=== PATIENT | male | born 1940 | race Caucasian/White ===

== ENCOUNTER → 2024-05-10 | Outpatient (CLI) | payer OTHER, SELFPAY | END | disposition home or self-care (01) | LOC: SLDO 15:30 | PROVIDERS: PCP Nurse Practitioner Family; Referring Provider Nurse Practitioner Family; Visit Provider Nurse Practitioner Family | DX: L03.031 Cellulitis of right toe (principal) | CPT/HCPCS: 87070; 87205 ==

== ENCOUNTER → 2024-07-12 | Outpatient (CLI) | payer OTHER, SELFPAY ==
[2024-07-12 15:13] LABS: Collection Type, Urine Clean Catch; Squamous Epithelial Cell,Urine 0 /hpf (0-5)
[2024-07-12 15:58] LABS: Bilirubin,Urine Negative (Negative); Blood,Urine 2+ (Negative); Clarity,Urine Turbid (Clear/Hazy); Color,Urine Lt-Yellow (Lt Yel-Yel); Glucose, Urine Negative (Negative); Ketones,Urine Negative (Negative); Leukocyte Esterase,Urine Positive (Negative); Nitrite,Urine Negative (Negative); Protein,Urine Negative (Neg - Trace); RBC,Urine 15 /hpf (0-3); Specific Gravity,Urine 1.007 (1.001-1.035); Urobilinogen,Urine Negative mg/dL (0.0-1.0); WBC,Urine 726 /hpf (0-5)
[2024-07-12 15:59] LABS: Amphetamine/Methamp Scrn,U Negative (Negative); Barbiturate Screen,Urine Negative (Negative); Benzodiazepines Screen,Urine Negative (Negative); Benzoylecgonine Screen, Ur Negative (Negative); Fentanyl Screen,Urine Negative (Negative); Opiate Screen,Urine Negative (Negative); THC Screen,Urine Negative (Negative)
== END | disposition home or self-care (01) ==
LOC: SLDO 14:57
PROVIDERS: PCP Registered Nurse; Referring Provider Registered Nurse; Visit Provider Registered Nurse
DX: N39.0 Urinary tract infection, site not specified (principal); Z79.891 Long term (current) use of opiate analgesic
CPT/HCPCS: 80307; 81001; 87077; 87086; 87186

== ENCOUNTER 2024-09-20 18:42 | Emergency (ER) | payer OTHER, SELFPAY ==
[2024-09-20 19:03] VITALS: BP 143/73; PULSE 73; RESP 18; TEMP 36.6; O2SAT 95
--- NOTE | 2024-09-20 19:07 | PD.EDCHEST ---
ED Chest Pain RME/HPI General Chief Complaint: Chest Pain Stated Complaint: CHEST PAIN Time Seen by Provider: 09/20/24 18:54 Arrival date/time: 09/20/24 18:42 RME / HPI RME / HPI narrative: Dr. Andrea?s Main ED Evaluation:?84 y/o male with Hx of Myocardial Infarction, Cardiac Arrhythmia, Atrial Fibrillation, Angina, Heart Murmur, Coronary Artery Disease, Hypertension, and COPD BIBA from home presents to ED c/o sudden intermittent substernal chest pain with exertion x approximately 1.5 hours. No radiation or migration. Per EMS, patient was in SVT and as they were about to administer Adenosine, patient converted on his own. Denies any history of SVT or current pain. Patient denies shortness of breath, diaphoresis, N/V or any other associated symptoms. Related Data Home Medications ?Medication ?Instructions ?Recorded ?Confirmed ferrous gluconate 324 mg (38 mg 324 mg PO QDAY 03/22/23 11/01/23 iron) tablet metformin 1,000 mg tablet 1,000 mg PO BID 03/22/23 11/01/23 Held on 03/28/23. Instructions: Resume on 03/31/23. hold metform may resume on 03/31/2023 omeprazole 20 mg capsule,delayed 20 mg PO QDAY 03/22/23 11/01/23 release terazosin 5 mg capsule 2 mg PO HS 03/22/23 11/01/23 tiotropium bromide 2.5 2 puff inhalation QDAY 03/22/23 11/01/23 mcg/actuation mist for inhalation (Spiriva Respimat) aspirin 81 mg tablet,delayed 81 mg PO QDAY 03/23/23 11/01/23 release (Ecotrin Low Strength) hydrocodone 5 mg-acetaminophen 325 1 tab PO BID PRN Pain 03/23/23 11/01/23 mg tablet ascorbic acid (vitamin C) 500 mg 900 mg PO QDAY 11/01/23 11/01/23 tablet atorvastatin 40 mg tablet 40 mg PO QDAY 11/01/23 11/01/23 magnesium 200 mg tablet 400 mg PO QDAY 11/01/23 11/01/23 Allergies Allergy/AdvReac Type Severity Reaction Status Date / Time lisinopril Allergy Verified 10/16/22 12:07 Penicillins Allergy Verified 10/16/22 12:07 prednisone Allergy Verified 10/16/22 12:07 alprazolam (From Xanax) AdvReac Agitated Verified 11/01/23 08:16 lorazepam (From Ativan) AdvReac Agitated Verified 11/01/23 08:16 meloxicam AdvReac Confusion Verified 11/01/23 08:16 Review of Systems Review of Systems Systems Reviewed: All systems reviewed, normal except as documented Past Medical History Past Medical History NEUROLOGIC: Positive Dementia CARDIAC: Positive Cardiac Disorders, Myocardial Infarction, Cardiac Arrhythmia, Atrial Fibrillation, Angina, Heart Murmur, Coronary Artery Disease and Hypertension RESPIRATORY: Positive Chronic Obstructive Pulmonary Disease (COPD) GENITOURINARY: Positive Genitourinary Disorders and Benign Prostatic Hyperplasia MUSCULOSKELETAL: Positive Arthritis ENDOCRINE: Positive Diabetes Mellitus Type 2 OTHER HISTORY: Positive Hospitalization and Falls Family History FAMILY HISTORY: Positive Family Respiratory Disorders, Family Cancer and Family Surgery Surgical History SURGICAL: Positive Coronary Stent, Cardiac Catheterization, Angiogram and Vasectomy ED Exam Narrative Physical exam: GENERAL APPEARANCE: alert and oriented x 4, well-developed, well-nourished, no acute distress VITALS: All vitals were reviewed and the pulse ox is 95% on room air, which is normal according to my interpretation. HEENT: Normocephalic, atraumatic; pupils equal, round, reactive to light; EOMI; mucous membranes pink, moist; oropharynx clear NECK: Supple LUNGS: CTABL; no wheezes, no rales, no rhonchi HEART: Regular rate, regular rhythm; normal S1, S2; no murmurs ABDOMEN: non distended; normal BS; soft, no tenderness, no guarding, no rebound; no masses, no organomegaly, no hernia BACK: no CVA tenderness EXTREMITIES: atraumatic; no edema NEUROLOGIC: awake; alert and oriented x4; cranial nerves II-XII grossly intact; no focal sensory or motor deficits PSYCHIATRIC: appropriate mood and affect SKIN: warm, dry, normal color; no rashes Course Course Course Narrative: CXR is ordered for determining the etiology of chest pain. Quality Measures none Orders Category Date Time Status It Application Support Analyst STAT Care 09/20/24 19:08 Completed Continuous Pulse Oximetry ONCE Care 09/20/24 19:08 Completed EKG (ED ONLY) *Do not use* NOW Care 09/20/24 19:08 Completed Insert IV STAT Care 09/20/24 19:08 Completed EKG (ED Only) Stat Exams 09/20/24 19:08 Draft XR chest 1V portable Stat Exams 09/20/24 19:08 Completed B-Type Natriuretic Peptide Stat Lab 09/20/24 19:31 Completed CBC Stat Lab 09/20/24 19:31 Completed Comprehensive Metabolic Panel Stat Lab 09/20/24 19:31 Completed Lipase Stat Lab 09/20/24 19:31 Completed Magnesium Stat Lab 09/20/24 19:31 Completed Partial Thromboplastin Time Stat Lab 09/20/24 19:31 Completed Prothrombin Time with INR Stat Lab 09/20/24 19:31 Completed Troponin I Stat Lab 09/20/24 19:31 Completed Troponin I Stat Lab 09/20/24 21:35 Completed Vital Signs Vital signs: Vital Signs Temperature 98 F 09/20/24 19:03 Pulse Rate 73 09/20/24 19:03 Respiratory Rate 18 09/20/24 19:03 Blood Pressure 143/73 H 09/20/24 19:03 Pulse Oximetry (%) 95 09/20/24 19:03 Oxygen Delivery Method Room Air 09/20/24 19:03 Chest Pain MDM Narrative MDM Narrative:: Scribe Attestation: Peyton Kramer am scribing for and in the presence of Dr. Andrea. Provider Notation: Although this document has been carefully reviewed, there may still be some phonetic and other typographical errors.? These errors are purely grammatical due to imperfections in the software program and should not be construed in any way to? compromise the substance of the patient's medical care during this visit. 2247: Patient leaving AMA. Patient was informed of the risks versus benefits of leaving and patient signed out AMA. Patient data External records reviewed:: [facility] previous records (Prior ED records from 11/01/23 reviewed. Patient was seen for Abrasion of forehead.) and EMS form Clinical information provided by:: patient and EMS Social determinants that could affect healthcare access:: none Patient has the following chronic illnesses:: Dementia, Myocardial Infarction, Cardiac Arrhythmia, Atrial Fibrillation, Angina, Heart Murmur, Coronary Artery Disease, Hypertension, COPD, Benign Prostatic Hyperplasia, Arthritis, Diabetes Mellitus Type 2 How is presenting disease/condition affected by chronic disease/condition?: exacerbated by Evaluation data The following diagnostics were reviewed and interpreted by me:: lab results, radiology exam(s) and EKG tracing(s) (EKG at 193 shows normal sinus rhythm at 78, normal axis, Q-waves in lead III, no signs of acute ischemia.) Lab and/or radiology exams considered but not ordered:: None. Interpretation Summary: LABS Hematology: RBC 3.45, Hgb 11.1, Hct 33.5%, RDW St. Dev. 49.7. Chemistry: Estimated Creatinine Clear Calc 50.1, eGFR 55, BUN/Creatinine 10. RADIOLOGY Chest X-Ray: Patient: ARIEL DICK. Record#: [id number] Birthdate: 1940 Age/Sex: 84 / M Location: [facility] Attending Dr: Ordering Physician: Collins Andrea MD Date of Service: 09/20/24 Procedure(s): XR chest 1V portable Accession Number(s): [id number] cc: Jelani Mahoney MD; Earl Felipe MD; Collins Andrea MD~ Examination: AP chest single view TECHNIQUE: AP portable upright chest single view Standing time: September 20, 2024 1933 hours INDICATIONS: Such as pain today. FINDINGS: Normal heart size Median sternotomy wires. No pneumonia or pulmonary edema IMPRESSION: No active disease Dictated By: Jelani Mahoney MD Signed By: <Electronically signed by Jelani Mahoney MD in OV> 09/20/242112 Medications / Prescriptions Medications or Prescriptions considered but not ordered:: None. Medication administrations:: See above if any. Consultations Consultation(s) initiated? (list below): No Diagnosis Chest Pain Differential Diagnosis: stable angina, unstable angina pectoris, atypical chest pain, costochondritis and chest pain Most likely diagnosis given after review of the tests above:: See clinical impression below. Admission Indicated Admission indicated?: not indicated Explain why admission is indicated or not indicated:: Patient left AMA Admission Request Was there a request for admission?: No Disposition Plan Disposition Plan: other (specify) (Patient is signing out AMA.) Discharge Plan Plan Patient Disposition: Left Against Medical Advice Discharge Disposition comment: AGAINST MEDICAL ADVICE Patient condition on transfer: Stable Prescriptions/Referrals Prescriptions/Med Rec: No Action terazosin 5 mg capsule 2 mg PO HS Patient Comments: TAKE 1 CAPSULE BY MOUTH EVERY DAY AT BEDTIME FOR 90 DAYS metformin 1,000 mg tablet 1,000 mg PO BID Patient Comments: TAKE 1 TABLET BY MOUTH TWICE A DAY FOR 90 DAYS omeprazole 20 mg capsule,delayed release(DR/EC) 20 mg PO QDAY Patient Comments: TAKE 1 CAPSULE BY MOUTH EVERY DAY 30 MINUTES BEFORE MORNING MEAL FOR 90 DAYS ferrous gluconate 324 mg (38 mg iron) tablet 324 mg PO QDAY Patient Comments: TAKE 1 TABLET BY MOUTH EVERY DAY WITH WATER OR JUICE BETWEEN MEALS Spiriva Respimat 2.5 mcg/actuation mist 2 puff INHALATION QDAY hydrocodone-acetaminophen 5-325 mg tablet 1 tab PO BID PRN (Reason: Pain) aspirin [Ecotrin Low Strength] 81 mg Tablet,Delayed Release (Dr/Ec) 81 mg PO QDAY atorvastatin 40 mg Tablet 40 mg PO QDAY ascorbic acid (vitamin C) [Super C] 500 mg Tablet 900 mg PO QDAY magnesium 200 mg Tablet 400 mg PO QDAY Referrals: Earl Felipe MD [Primary Care Provider] - In 1 week Problem List Clinical Impression: Chest pain Patient/Caregiver Discharge Instructions Discharge Activity: activity as tolerated Education Materials: ED Chest Pain, Uncertain Cause Additional Instructions: Just because you are leaving AGAINST MEDICAL ADVICE does not mean that you cannot come back to this emergency department. Please return to the ER when you are ready to complete your workup and treatment for your medical condition. Otherwise you should follow-up with your primary care doctor and your primary boiler mechanic as soon as possible. Print Language: Chinese
--- NOTE | 2024-09-20 19:08 | EKG_ITS ---
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
[2024-09-20 19:30] VITALS: PULSE 152; PULSE 79; RESP 22; O2SAT 93
[2024-09-20 19:47] LABS: Basophils % (Auto) 1 % (0-2.5); Eosinophils # (Auto) 0.3 Thou/mm3 (0.0-0.5); Eosinophils % (Auto) 5 % (0-10); Hematocrit 33.5 % (41.0-53.0); Hemoglobin 11.1 g/dL (13.5-16.0); Immature Granulocytes % (Auto) 0 % (0-0); Immature Granulocytes Auto 0.01 Thou/mm3 (0.00-0.00); Lymphocytes % (Auto) 30 % (10-50); Mean Corpuscular HGB Conc 33.1 g/dl (31.0-37.0); Mean Corpuscular Hemoglobin 32.2 pg (25.0-35.0); Mean Corpuscular Volume 97 fL (80-100); Monocytes # (Auto) 0.7 Thou/mm3 (0.0-0.8); Monocytes % (Auto) 10 % (0-12); Neutrophils # (Auto) 3.6 Thou/mm3 (1.8-7.7); Neutrophils % (Auto) 54 % (37-80); Nucleated Red Blood Cell % 0 /100 WBC (0); Platelet Count 194 Thou/mm3 (140-440); RDW Standard Deviation 49.7 fL (35.1-43.9); Red Blood Count 3.45 Miln/mm3 (4.50-5.90); White Blood Count 6.6 Thou/mm3 (3.8-10.6)
[2024-09-20 19:51] VITALS: BMI 27.6
[2024-09-20 20:04] LABS: B-Type Natriuretic Peptide 42 pg/mL (0-100)
[2024-09-20 20:07] LABS: Alanine Aminotransferase 11 U/L (10-49); Albumin, Serum 4.2 gm/dL (3.4-4.8); Albumin/Globulin Ratio 1.7 (1.2-2.2); Alkaline Phosphatase 89 U/L (46-116); Anion Gap 7 (7-16); Aspartate Amino Transferase 14 U/L (0-34); BUN/Creatinine Ratio 10 Ratio (12-20); Bilirubin,Total 0.6 mg/dL (0.3-1.2); Blood Urea Nitrogen 13 mg/dL (9-23); Calcium 9.1 mg/dL (8.3-10.6); Calcium (Corrected) 9.1 mg/dL (8.5-10.1); Carbon Dioxide 24.7 mMol/L (20.0-31.0); Chloride 106 mMol/L (98-107); Creatinine (Component) 1.3 mg/dL (0.6-1.3); Estimated Creatinine Clearance 50.1 mL/min (>60); Globulin 2.5 gm/dL (2.3-3.5); Glucose 90 mg/dL (74-106); Lipase 33 U/L (12-53); Magnesium 2.1 mg/dL (1.6-2.6); Osmolality,Calculated 275 (275-295); Potassium 4.2 mMol/L (3.4-5.1); Sodium 138 mMol/L (136-145); Total Protein 6.7 gm/dL (5.7-8.2); Troponin I < 0.020 ng/mL (0.0-0.045); eGFR 55 See Note
[2024-09-20 21:16] LABS: Partial Thromboplastin Time 22.8 Seconds (22.0-36.0); Prothrombin Time 10.9 Seconds (9.0-12.2)
[2024-09-20 21:29] VITALS: BP 151/74; PULSE 70; RESP 18; TEMP 36.8; O2SAT 95
[2024-09-20 22:40] LABS: Troponin I 0.029 ng/mL (0.0-0.045)
--- NOTE | 2024-09-20 22:54 | PC.NURSE ---
Patient's family member was upset and tired of waiting for results. She asked multiple times what they were waiting for. I explained several times as I had went in the patients room to check on them, do rounding, and update vitals, that they were waiting for lab work to come back for the patient. She was unsatisfied and continuously repeated, so we can leave multiple times. I explained to her that I wasn't the nurse and I was going to get the nurse to come and talk to her, she stated again, so we can leave . I let the RN manuela know and she went in to talk to the patient.
--- NOTE | 2024-09-20 22:55 | PC.NURSE ---
Pt and family member want to leave. Encouraged pt to stay, but refused. Explained the risks and consequences of leaving the hospital. Aware if symptoms worsen, may lead to ; pt and family member verbalized understanding. Dr. Andrea made aware pt is leaving AMA. AMA form signed by pt.
== END 2024-09-20 22:55 | disposition left against medical advice (07) ==
PROVIDERS: Emergency Provider Emergency Medicine; PCP Family Medicine
DX: R07.9 Chest pain, unspecified (principal); I44.0 Atrioventricular block, first degree; I25.2 Old myocardial infarction; I48.91 Unspecified atrial fibrillation; I25.10 Atherosclerotic heart disease of native coronary artery without angina pectoris; I10 Essential (primary) hypertension; J44.9 Chronic obstructive pulmonary disease, unspecified; Z53.29 Procedure and treatment not carried out because of patient's decision for other reasons
CPT/HCPCS: 36415; 71045; 80053; 83690; 83735; 83880; 84484; 85025; 85610; 85730; 93005; 99283

== ENCOUNTER → 2024-10-15 | Outpatient (CLI) | payer OTHER, SELFPAY ==
[2024-10-15 14:32] LABS: Collection Type, Urine Clean Catch; Squamous Epithelial Cell,Urine 0 /hpf (0-5)
[2024-10-15 16:19] LABS: Bilirubin,Urine Negative (Negative); Blood,Urine Negative (Negative); Clarity,Urine Clear (Clear/Hazy); Color,Urine Lt-Yellow (Lt Yel-Yel); Glucose, Urine Negative (Negative); Hyaline Casts,Urine < 1 /hpf (0-1); Ketones,Urine Negative (Negative); Leukocyte Esterase,Urine Negative (Negative); Nitrite,Urine Negative (Negative); PH,Urine 5.5 (5.0-7.0); Protein,Urine Negative (Neg - Trace); RBC,Urine < 1 /hpf (0-3); Specific Gravity,Urine 1.023 (1.001-1.035); Urobilinogen,Urine Negative mg/dL (0.0-1.0); WBC,Urine < 1 /hpf (0-5)
== END | disposition home or self-care (01) ==
LOC: SLDO 14:09
PROVIDERS: Referring Provider Nurse Practitioner Family; Visit Provider Nurse Practitioner Family
DX: N39.0 Urinary tract infection, site not specified (principal)
CPT/HCPCS: 81001; 87086

== ENCOUNTER → 2024-11-22 | Outpatient (CLI) | payer OTHER, SELFPAY ==
[2024-11-22 12:18] LABS: Basophils # (Auto) 0.0 Thou/mm3 (0.0-0.2); Basophils % (Auto) 0 % (0-2.5); Eosinophils # (Auto) 0.3 Thou/mm3 (0.0-0.5); Eosinophils % (Auto) 4 % (0-10); Hematocrit 33.2 % (41.0-53.0); Hemoglobin 11.1 g/dL (13.5-16.0); Immature Granulocytes Auto 0.02 Thou/mm3 (0.00-0.00); Lymphocytes # (Auto) 1.7 Thou/mm3 (1.0-4.8); Lymphocytes % (Auto) 24 % (10-50); Mean Corpuscular HGB Conc 33.4 g/dl (31.0-37.0); Mean Corpuscular Hemoglobin 32.0 pg (25.0-35.0); Mean Corpuscular Volume 96 fL (80-100); Monocytes # (Auto) 0.6 Thou/mm3 (0.0-0.8); Monocytes % (Auto) 9 % (0-12); Neutrophils # (Auto) 4.4 Thou/mm3 (1.8-7.7); Neutrophils % (Auto) 62 % (37-80); Nucleated Red Blood Cell # 0.00 Thou/mm3 (0.00-0.00); Nucleated Red Blood Cell % 0 /100 WBC (0); Platelet Count 228 Thou/mm3 (140-440); RDW Standard Deviation 47.4 fL (35.1-43.9); Red Blood Count 3.47 Miln/mm3 (4.50-5.90); White Blood Count 7.0 Thou/mm3 (3.8-10.6)
[2024-11-22 12:24] LABS: Alanine Aminotransferase 11 U/L (10-49); Albumin, Serum 4.3 gm/dL (3.4-4.8); Albumin/Globulin Ratio 1.8 (1.2-2.2); Alkaline Phosphatase 99 U/L (46-116); Anion Gap 7 (7-16); Aspartate Amino Transferase 14 U/L (0-34); BUN/Creatinine Ratio 11 Ratio (12-20); Bilirubin,Total 0.5 mg/dL (0.3-1.2); Blood Urea Nitrogen 14 mg/dL (9-23); Calcium 9.4 mg/dL (8.3-10.6); Calcium (Corrected) 9.4 mg/dL (8.5-10.1); Carbon Dioxide 27.2 mMol/L (20.0-31.0); Chloride 109 mMol/L (98-107); Creatinine (Component) 1.3 mg/dL (0.6-1.3); Globulin 2.4 gm/dL (2.3-3.5); Glucose 94 mg/dL (74-106); Osmolality,Calculated 285 (275-295); Potassium 4.9 mMol/L (3.4-5.1); Sodium 143 mMol/L (136-145); Total Protein 6.7 gm/dL (5.7-8.2); eGFR 55 See Note
[2024-11-22 13:51] LABS: B-Type Natriuretic Peptide 47 pg/mL (0-100)
== END | disposition home or self-care (01) ==
PROVIDERS: PCP Registered Nurse; Referring Provider Registered Nurse; Visit Provider Registered Nurse
DX: R22.43 Localized swelling, mass and lump, lower limb, bilateral (principal); R53.82 Chronic fatigue, unspecified
CPT/HCPCS: 36415; 80053; 83880; 85025

== ENCOUNTER 2024-12-16 08:58 | Observation (INO) | payer OTHER, SELFPAY ==
[2024-12-16] VITALS (7 sets, daily range): BP systolic 136–177; BP diastolic 74–95; PULSE 72–78; RESP 14–96; TEMP 36.4–36.9; O2SAT 93–100; BMI 29.5
--- NOTE | 2024-12-16 | XR_ITS ---
Examinations: MRI Brain without intravenous contrast. MRA brain without intravenous contrast. MRA carotids without intravenous contrast 3-D vascular reconstructions Date and time of exam: December 16, 2024 1832 hours INDICATIONS: Stroke alert today, onset dizziness focal neurologic deficit Technique: Multiple axial and sagittal images of the brain have been obtained MRA brain carotid images without contrast obtained, including 3-D postprocessing, vascular maximum intensity projection images Findings: Sellaturcica is not enlarged. The optic chiasm and infundibular stalk are not remarkable. Prepontine and interpeduncular cisterns are not enlarged. No localized enlargement of the medulla or jaron. Fourth ventricle and cerebellar tonsils normal in position. Subacute hemorrhage is not seen. Fourth ventricle is midline. Mass in the cerebellopontine angle region is not evident. 7th and 8th nerve complexes exhibits symmetry. Globes are symmetrical with no retro-orbital mass. Increased white matter signal moderate Diffusion-weighted images demonstrate no focus of restricted diffusion Mass-effect upon the ventricular system is not identified. MRA carotid images no significant carotid stenoses. MRA brain images no cerebral assess arterial occlusions Impression: Negative for acute hemorrhage mass effect or midline shift No acute infarct Moderate chronic microvascular white matter change Significant bilateral mastoiditis No cerebral large vessel arterial occlusions
--- NOTE | 2024-12-16 09:06 | PD.EDDIZZY ---
ED Dizzyness RME/HPI General Chief Complaint: Altered Mental Status Stated Complaint: DIZZINESS Time Seen by Provider: 12/16/24 09:02 Arrival date/time: 12/16/24 08:58 Limitations: no limitations RME / HPI RME / HPI Narrative: 84 year old male with history of CAD s/p stents, s/p CABG, COPD, hypertension, diabetes, BPH presents to the ED BIBA from home for evaluation of dizziness beginning at 08:00 AM today while making tea. Described as room spinning sensation rating as severe. Accompanied by double vision lasting only ~1 minute. Patient reports going to bed at 8:00 PM last night and waking at ~ 7:00 AM today at his usual state of health. Denies any change in speech or gait. Denies recent illness, fevers, chills, chest pain, cough, shortness of breath, abdominal pain, vomiting, change in bowel habits Reportedly has experienced dizziness in the past but not to this severity. Related Data Home Medications ?Medication ?Instructions ?Recorded ?Confirmed ferrous gluconate 324 mg (38 mg 324 mg PO QDAY 03/22/23 11/01/23 iron) tablet metformin 1,000 mg tablet 1,000 mg PO BID 03/22/23 11/01/23 Held on 03/28/23. Instructions: Resume on 03/31/23. hold metform may resume on 03/31/2023 omeprazole 20 mg capsule,delayed 20 mg PO QDAY 03/22/23 11/01/23 release terazosin 5 mg capsule 2 mg PO HS 03/22/23 11/01/23 tiotropium bromide 2.5 2 puff inhalation QDAY 03/22/23 11/01/23 mcg/actuation mist for inhalation (Spiriva Respimat) aspirin 81 mg tablet,delayed 81 mg PO QDAY 03/23/23 11/01/23 release (Ecotrin Low Strength) hydrocodone 5 mg-acetaminophen 325 1 tab PO BID PRN Pain 03/23/23 11/01/23 mg tablet ascorbic acid (vitamin C) 500 mg 900 mg PO QDAY 11/01/23 11/01/23 tablet atorvastatin 40 mg tablet 40 mg PO QDAY 11/01/23 11/01/23 magnesium 200 mg tablet 400 mg PO QDAY 11/01/23 11/01/23 Allergies Allergy/AdvReac Type Severity Reaction Status Date / Time lisinopril Allergy Verified 10/16/22 12:07 Penicillins Allergy Verified 10/16/22 12:07 prednisone Allergy Verified 10/16/22 12:07 alprazolam (From Xanax) AdvReac Agitated Verified 11/01/23 08:16 lorazepam (From Ativan) AdvReac Agitated Verified 11/01/23 08:16 meloxicam AdvReac Confusion Verified 11/01/23 08:16 Review of Systems Review of Systems Systems Reviewed: All systems reviewed, normal except as documented Past Medical History Past Medical History NEUROLOGIC: Positive Dementia CARDIAC: Positive Cardiac Disorders, Myocardial Infarction, Cardiac Arrhythmia, Atrial Fibrillation, Angina, Heart Murmur, Coronary Artery Disease and Hypertension RESPIRATORY: Positive Chronic Obstructive Pulmonary Disease (COPD) GENITOURINARY: Positive Genitourinary Disorders and Benign Prostatic Hyperplasia MUSCULOSKELETAL: Positive Musculoskeletal Disorders and Arthritis ENDOCRINE: Positive Diabetes Mellitus Type 2 OTHER HISTORY: Positive Hospitalization and Falls Family History FAMILY HISTORY: Positive Family Respiratory Disorders, Family Cancer and Family Surgery Surgical History SURGICAL: Positive Coronary Stent, Cardiac Catheterization, Angiogram and Vasectomy Social History SMOKING STATUS: Former smoker SECOND HAND EXPOSURE: No SUBSTANCE USE: does not use ED Exam General Limitations: Present no limitations General appearance: Present alert and in no apparent distress Head Head exam: Present atraumatic, normocephalic and normal inspection Eye Eye exam: Present normal appearance, PERRL and EOMI ENT ENT exam: Present normal exam, normal oropharynx and mucous membranes moist Neck Neck exam: Present normal inspection, full ROM and trachea midline Chest Chest inspection: Present normal inspection and symmetric chest wall rise Respiratory Respiratory exam: Present normal lung sounds bilaterally Cardiovascular Cardiovascular exam: Present regular rate, normal rhythm and normal heart sounds Abdominal Exam Abdominal exam: Present soft and normal bowel sounds Extremities Exam Extremities exam: Present normal inspection and full ROM Back Exam Back exam: Present normal inspection and full ROM Neurological Exam Neurological exam: Present alert, oriented X3, CN II-XII intact and other (No focal findings, bradykinetic, and slow to respond which may be baseline for the patient); Absent motor sensory deficit Psychiatric Psychiatric exam: Present normal affect and normal mood Skin Skin exam: Present warm, dry, intact and normal color Course Course Course Narrative: 0908: Patient evaluated in ED room 5 0911: Stroke alert activated Quality Measures Suspected type of Stroke: Non Acute Last known well (date): 12/15/24 Last known well (time): 20:00 Tenecteplase given: Reason(s) TPA not given: Outside the time window not given stroke Orders Category Date Time Status Bedside Blood Glucose NOW Care 12/16/24 09:11 Active Tin Can Laborer NOW Care 12/16/24 09:11 Active Continuous Pulse Oximetry NOW Care 12/16/24 09:11 Completed EKG (ED ONLY) *Do not use* NOW Care 12/16/24 09:04 Completed Insert IV NOW Care 12/16/24 09:11 Active NIH Stroke Scale now Care 12/16/24 09:11 Active NPO NOW Care 12/16/24 09:11 Active Neuro Check Q15MIN Care 12/16/24 09:11 Active Nurse Swallow Screen x1 Care 12/16/24 09:11 Active Consult to Neurology / Tele-Neurology Routine Cons 12/16/24 09:[address] angio stroke protocol Stat Exams 12/16/24 09:[address] stroke protocol Stat Exams 12/16/24 09:11 Completed EKG (ED Only) Stat Exams 12/16/24 09:04 Ordered Alcohol, Blood Medical Stat Lab 12/16/24 09:25 Completed B-Type Natriuretic Peptide Stat Lab 12/16/24 09:25 Completed CBC Stat Lab 12/16/24 09:25 Completed Comprehensive Metabolic Panel Stat Lab 12/16/24 09:25 Completed Drug Screen,Urine Stat Lab 12/16/24 10:03 Completed Magnesium Stat Lab 12/16/24 09:25 Completed Partial Thromboplastin Time Stat Lab 12/16/24 09:25 Completed Prothrombin Time with INR Stat Lab 12/16/24 09:25 Completed Troponin I Stat Lab 12/16/24 09:25 Completed Urinalysis Stat Lab 12/16/24 10:03 Received Urine Culture Stat Lab 12/16/24 10:03 Received Sodium Chloride 0.9% 1000 ml [Ns] 1,000 ml Med 12/16/24 09:15 Active IV Q10H Oxygen Delivery NOW RT 12/16/24 09:11 Active Vital Signs Vital signs: Vital Signs Temperature 98.1 F 12/16/24 09:49 Pulse Rate 78 12/16/24 09:49 Respiratory Rate 17 12/16/24 09:49 Blood Pressure 151/85 H 12/16/24 09:49 Pulse Oximetry (%) 100 12/16/24 09:49 Oxygen Delivery Method Room Air 12/16/24 09:49 Pulse ox is 100% on room air which is adequate. Dizziness MDM Narrative MDM Narrative:: Milagro Kramer am scribing for and in the presence of Dr. Cao. Patient data External records reviewed:: [facility] previous records (I reviewed ED visit on 09/20/2024 ) and EMS form Clinical information provided by:: patient and EMS Social determinants that could affect healthcare access:: none Patient has the following chronic illnesses:: CAD s/p stents, s/p CABG, COPD, hypertension, diabetes, BPH How is presenting disease/condition affected by chronic disease/condition?: exacerbated by Evaluation data The following diagnostics were reviewed and interpreted by me:: lab results, radiology exam(s) and EKG tracing(s) (12/16/2024 @ 09:08 AM. Sinus rhythm with first degree block, rate 77, no acute ischemic changes, no STEMI. ) Lab and/or radiology exams considered but not ordered:: None Interpretation Summary: Ordering Physician: Yosef Cao MD Date of Service: 12/16/24 Procedure(s): CT stroke protocol Accession Number(s): [id number] cc: Yosef Cao MD; Jelani Mahoney MD~ Examination: CT brain head without contrast. 2-D sagittal coronal reconstructions Date and time of exam:December 16, 2024 0917 hours INDICATIONS: Stroke alert, onset focal neurologic deficit today including dizziness blurred vision CTDI: vol (mGy):50.9 DLP: (mGycm):1007 Technique: Multiple CT axial sections of the brain have been obtained, 5 mm slice thickness. Contrast has not been administered. 2-D sagittal, coronal reconstructions have been obtained Low dose protocols were performed. One or more of the following dose reduction techniques were used; automated exposure control, adjustment of the mA and/or KV according to patient size, use of iterative reconstruction technique. Findings: No significant ventricular enlargement. Intra-axial or extra-axial hemorrhage density is not seen. No mass effect or midline shift Basal cisterns are not remarkable. Fourth ventricle is midline. Cranial vault intact. Impression: Negative for acute hemorrhage, mass effect or midline shift Dictated By: Jelani Mahoney MD Signed By: <Electronically signed by Jelani Mahoney MD in OV> 12/16/24 0928 Ordering Physician: Yosef Cao MD Date of Service: 12/16/24 Procedure(s): CT angio stroke protocol Accession Number(s): [id number] cc: Yosef Cao MD; Jelani Mahoney MD~ Examination: CTA carotids with intravenous contrast CTA brain, head with intravenous contrast. 2-D sagittal, coronal reconstructions. 3-D reconstructions. Exam date and time: December 16, 2024 0936 hours INDICATIONS: Stroke alert this morning, onset focal neurologic deficit, blurred vision dizziness vertigo CTDI: vol (mGy) 45.6 DLP: (mGycm) : 520 Technique: Multiple CTA axial brain, head carotid images post intravenous contrast injection 75 cc, Isovue-370. 2-D sagittal, coronal reconstructions. 3-D reconstructions, 3-D post processing including vascular maximum intensity projection images. Low dose protocols were performed. One or more of the following dose reduction techniques were used; automated exposure control, adjustment of the mA and/or KV according to patient size, use of iterative reconstruction technique. Findings: 10-30% stenosis right carotid bifurcation origin right internal carotid artery 30-50% stenosis left carotid bifurcation origin left internal carotid artery Codominant vertebral arteries with no critical stenoses No cerebral large vessel arterial occlusions thrombus dissection or cerebral aneurysm IMPRESSION: 10-30% stenosis right carotid bifurcation origin right internal carotid artery 30-50% stenosis left carotid bifurcation origin left internal carotid artery. No cerebral large vessel arterial occlusions Dictated By: Jelani Mahoney MD Signed By: <Electronically signed by Jelani Mahoney MD in OV> 12/16/24 1015 Medications / Prescriptions Medications or Prescriptions considered but not ordered:: None Medication administrations:: Medication Administration History Sodium Chloride (Ns) 1,000 mls @ 100 mls/hr IV Q10H MARCELINA Stop: 01/15/25 09:14 Last Admin: 12/16/24 10:07 Dose: 100 mls/hr Documented By: TU See above Consultations Consultation(s) initiated? (list below): Yes Consultation #1 (Physician, Specialty, Details): I spoke with teleneurologist Dr. Lawton, states patient is not a TNK candidate at this time. LKW > 4.5 hours. Advised starting the patient on Plavix, ASA, and admission for further stroke work-up. Time: 10:28 Consultation #2 (Physician, Specialty, Details): I spoke with resident working with Dr. Auguste. Discussed patients PMHx, HPI, ED course, exam findings, labs, and radiology results. The hospitalist agree to accept the patient for admission. Time: 10:38 Diagnosis Dizziness Differential Diagnosis: benign paroxysmal positional vertigo, cerebrovascular accident and transient cerebral ischemia Most likely diagnosis given after review of the tests above:: Dizziness Acute CVA Admission Indicated Admission indicated?: indicated Admission Request Was there a request for admission?: Yes Admission Attestation Admission request attestation: Discussed case with [] from Hospitalist service regarding admission. Discussed patients ED course, exam findings, labs, and radiology results. The Hospitalist [agrees,declines] to accept the patient for admission. Disposition Plan Disposition Plan: Admit Critical Care Time Critical Care Time Critical Care Time: Yes Total Critical Care Time (min.): 45 Attestation: The high probability of sudden, clinically significant deterioration in the patient's condition required the highest level of my preparedness to intervene urgently. The services I provided to this patient were to treat and/or prevent clinically significant deterioration. Services included the following: chart data review, reviewing nursing notes and/or old charts, documentation time, education consultant collaboration regarding findings and treatment options, medication orders and management, direct patient care, vital sign assessments and ordering, interpreting and reviewing diagnostic studies and lab tests. Aggregate critical care time includes only time during which I was engaged in work directly related to the patient's care, as described above, whether at bedside or elsewhere in the Emergency Department. It did not include time spent performing other reported procedures or the services of residents, students, nurses or physician assistants. Discharge Plan Plan Patient Disposition: Admit Acute Care w/in Hospital Prescriptions/Referrals Prescriptions/Med Rec: No Action terazosin 5 mg capsule 2 mg PO HS Patient Comments: TAKE 1 CAPSULE BY MOUTH EVERY DAY AT BEDTIME FOR 90 DAYS metformin 1,000 mg tablet 1,000 mg PO BID Patient Comments: TAKE 1 TABLET BY MOUTH TWICE A DAY FOR 90 DAYS omeprazole 20 mg capsule,delayed release(DR/EC) 20 mg PO QDAY Patient Comments: TAKE 1 CAPSULE BY MOUTH EVERY DAY 30 MINUTES BEFORE MORNING MEAL FOR 90 DAYS ferrous gluconate 324 mg (38 mg iron) tablet 324 mg PO QDAY Patient Comments: TAKE 1 TABLET BY MOUTH EVERY DAY WITH WATER OR JUICE BETWEEN MEALS Spiriva Respimat 2.5 mcg/actuation mist 2 puff INHALATION QDAY hydrocodone-acetaminophen 5-325 mg tablet 1 tab PO BID PRN (Reason: Pain) aspirin [Ecotrin Low Strength] 81 mg Tablet,Delayed Release (Dr/Ec) 81 mg PO QDAY atorvastatin 40 mg Tablet 40 mg PO QDAY ascorbic acid (vitamin C) [Super C] 500 mg Tablet 900 mg PO QDAY magnesium 200 mg Tablet 400 mg PO QDAY Referrals: Earl Felipe MD [Primary Care Provider] - In 1 week Problem List Clinical Impression: Dizziness, Acute cerebrovascular accident (CVA) Patient/Caregiver Discharge Instructions Print Language: Yoruba Stand Alone Forms: [facility]dalene Award Info., Patient Portal Info Letter
--- NOTE | 2024-12-16 09:11 | XR_ITS ---
Examination: CTA carotids with intravenous contrast CTA brain, head with intravenous contrast. 2-D sagittal, coronal reconstructions. 3-D reconstructions. Exam date and time: December 16, 2024 0936 hours INDICATIONS: Stroke alert this morning, onset focal neurologic deficit, blurred vision dizziness vertigo CTDI: vol (mGy) 45.6 DLP: (mGycm) : 520 Technique: Multiple CTA axial brain, head carotid images post intravenous contrast injection 75 cc, Isovue-370. 2-D sagittal, coronal reconstructions. 3-D reconstructions, 3-D post processing including vascular maximum intensity projection images. Low dose protocols were performed. One or more of the following dose reduction techniques were used; automated exposure control, adjustment of the mA and/or KV according to patient size, use of iterative reconstruction technique. Findings: 10-30% stenosis right carotid bifurcation origin right internal carotid artery 30-50% stenosis left carotid bifurcation origin left internal carotid artery Codominant vertebral arteries with no critical stenoses No cerebral large vessel arterial occlusions thrombus dissection or cerebral aneurysm IMPRESSION: 10-30% stenosis right carotid bifurcation origin right internal carotid artery 30-50% stenosis left carotid bifurcation origin left internal carotid artery. No cerebral large vessel arterial occlusions
--- NOTE | 2024-12-16 09:11 | XR_ITS ---
Examination: CT brain head without contrast. 2-D sagittal coronal reconstructions Date and time of exam:December 16, 2024 0917 hours INDICATIONS: Stroke alert, onset focal neurologic deficit today including dizziness blurred vision CTDI: vol (mGy):50.9 DLP: (mGycm):1007 Technique: Multiple CT axial sections of the brain have been obtained, 5 mm slice thickness. Contrast has not been administered. 2-D sagittal, coronal reconstructions have been obtained Low dose protocols were performed. One or more of the following dose reduction techniques were used; automated exposure control, adjustment of the mA and/or KV according to patient size, use of iterative reconstruction technique. Findings: No significant ventricular enlargement. Intra-axial or extra-axial hemorrhage density is not seen. No mass effect or midline shift Basal cisterns are not remarkable. Fourth ventricle is midline. Cranial vault intact. Impression: Negative for acute hemorrhage, mass effect or midline shift
[2024-12-16 09:37] LABS: Basophils # (Auto) 0.1 Thou/mm3 (0.0-0.2); Basophils % (Auto) 1 % (0-2.5); Eosinophils # (Auto) 0.3 Thou/mm3 (0.0-0.5); Eosinophils % (Auto) 4 % (0-10); Hematocrit 35.1 % (41.0-53.0); Hemoglobin 11.5 g/dL (13.5-16.0); Immature Granulocytes Auto 0.02 Thou/mm3 (0.00-0.00); Lymphocytes # (Auto) 1.6 Thou/mm3 (1.0-4.8); Lymphocytes % (Auto) 20 % (10-50); Mean Corpuscular HGB Conc 32.8 g/dl (31.0-37.0); Mean Corpuscular Hemoglobin 31.9 pg (25.0-35.0); Mean Corpuscular Volume 97 fL (80-100); Monocytes # (Auto) 0.7 Thou/mm3 (0.0-0.8); Monocytes % (Auto) 8 % (0-12); Neutrophils # (Auto) 5.3 Thou/mm3 (1.8-7.7); Neutrophils % (Auto) 67 % (37-80); Nucleated Red Blood Cell # 0.00 Thou/mm3 (0.00-0.00); Nucleated Red Blood Cell % 0 /100 WBC (0); Platelet Count 223 Thou/mm3 (140-440); RDW Standard Deviation 48.6 fL (35.1-43.9); Red Blood Count 3.61 Miln/mm3 (4.50-5.90); White Blood Count 8.0 Thou/mm3 (3.8-10.6)
[2024-12-16 09:51] LABS: INR 1.0 (0.9-1.3); Partial Thromboplastin Time 25.6 Seconds (22.0-36.0); Prothrombin Time 10.8 Seconds (9.0-12.2)
[2024-12-16] MEDS: SODIUM CHLORIDE 0.9% 1000 ML 1,000 ML 100 ML IV ×2 (10:07→20:25)
[2024-12-16 10:08] LABS: Alanine Aminotransferase 10 U/L (10-49); Albumin, Serum 4.0 gm/dL (3.4-4.8); Albumin/Globulin Ratio 1.7 (1.2-2.2); Alcohol, Blood Medical < 10.0 mg/dL (0-10.0); Alkaline Phosphatase 95 U/L (46-116); Anion Gap 5 (7-16); Aspartate Amino Transferase 16 U/L (0-34); BUN/Creatinine Ratio 9 Ratio (12-20); Bilirubin,Total 0.6 mg/dL (0.3-1.2); Blood Urea Nitrogen 13 mg/dL (9-23); Calcium 9.0 mg/dL (8.3-10.6); Calcium (Corrected) 9.0 mg/dL (8.5-10.1); Carbon Dioxide 26.9 mMol/L (20.0-31.0); Chloride 110 mMol/L (98-107); Creatinine (Component) 1.4 mg/dL (0.6-1.3); Estimated Creatinine Clearance 51.5 mL/min (>60); Globulin 2.4 gm/dL (2.3-3.5); Glucose 95 mg/dL (74-106); Magnesium 1.5 mg/dL (1.6-2.6); Osmolality,Calculated 283 (275-295); Potassium 4.7 mMol/L (3.4-5.1); Sodium 142 mMol/L (136-145); Total Protein 6.4 gm/dL (5.7-8.2); Troponin I < 0.020 ng/mL (0.0-0.045); eGFR 50 See Note
[2024-12-16 10:12] LABS: Collection Type, Urine Catheter; Squamous Epithelial Cell,Urine 0 /hpf (0-5)
[2024-12-16 10:16] LABS: B-Type Natriuretic Peptide 48 pg/mL (0-100)
[2024-12-16 10:22] LABS: Bilirubin,Urine Negative (Negative); Blood,Urine Negative (Negative); Clarity,Urine Clear (Clear/Hazy); Color,Urine Lt-Yellow (Lt Yel-Yel); Glucose, Urine Negative (Negative); Ketones,Urine Negative (Negative); Leukocyte Esterase,Urine Negative (Negative); Nitrite,Urine Negative (Negative); PH,Urine 7.0 (5.0-7.0); Protein,Urine Negative (Neg - Trace); RBC,Urine 1 /hpf (0-3); Specific Gravity,Urine 1.026 (1.001-1.035); Urobilinogen,Urine Negative mg/dL (0.0-1.0); WBC,Urine 1 /hpf (0-5)
[2024-12-16 10:29] LABS: Amphetamine/Methamp Scrn,U Negative (Negative); Barbiturate Screen,Urine Negative (Negative); Benzodiazepines Screen,Urine Negative (Negative); Benzoylecgonine Screen, Ur Negative (Negative); Fentanyl Screen,Urine Negative (Negative); Opiate Screen,Urine Negative (Negative); THC Screen,Urine Negative (Negative)
--- NOTE | 2024-12-16 10:29 | ESCONSULT_ITS ---
Tele Neuro Consultation Consultation Date 12/16/24 Most Recent Vital Signs Last Vital Signs Temp 98.1 F 12/16/24 09:49 Pulse 78 12/16/24 09:49 Resp 17 12/16/24 09:49 BP 151/85 H 12/16/24 09:49 Pulse Ox 100 12/16/24 09:49 O2 Del Method Room Air 12/16/24 09:49 Laboratory-Coagulation Panel PT 10.8 Seconds (9.0-12.2) 12/16/24 09:25 INR 1.0 (0.9-1.3) 12/16/24 09:25 APTT 25.6 Seconds (22.0-36.0) 12/16/24 09:25 Consultation Narrative [facility] Tele[facility]urology Consult Services Patient Name:???Yajaira Donis Date of :???1940 Identification Number:??? Date of Service:???12/16/2024 09:13:31 Diagnosis:?R42 - Dizziness/ Vertigo/ Giddiness Impression: ?84yo man w/PMH of DM, CAD s/p CABG p/w dizziness on 12/16/24. He states he had spinning dizziness this morning so EMS was called for him. He also felt shaky and sweaty. He otherwise denies complaints or prior episodes. He states he last felt normal at 20:00 on 12/16/24. NIHSS 1 for left arm dysmetria. CT Head has no acute findings per radiology, chronic infarct noted. Pt is not a candidate for thrombolytics due to being out of the 4.5 hour window. CTA Head/Neck shows no acute large vessel occlusion. Presentation is concerning for acute small vessel ischemic stroke based on history and exam, MRI Brain advised. Other possibilities include peripheral vertigo, infectious or metabolic encephalopathy. Plan listed below was recommended to the ED physician by phone. Our recommendations are outlined below. Recommendations: ? Stroke/Telemetry Floor ? Neuro Checks (Q4) ? Bedside Swallow Eval ? DVT Prophylaxis ? IV Fluids, Normal Saline ? Head of Bed 30 Degrees ? Euglycemia and Avoid Hyperthermia (PRN Acetaminophen) ? Bolus with Clopidogrel 300 mg bolus x1 and initiate dual antiplatelet therapy with Aspirin 81 mg daily and Clopidogrel 75 mg daily ? Antihypertensives PRN if Blood pressure is greater than 220/120 or there is a concern for End organ damage/contraindications for permissive HTN. If blood pressure is greater than 220/120 give labetalol PO or IV or Vasotec IV with a goal of 15% reduction in BP during the first 24 hours. ?Routine MRI Brain without contrast to assess for stroke ?TTE (if not recently done) ?Lipid Profile, A1C ?PT/OT, Speech/Swallow evaluation Sign Out: ? Discussed with Emergency Department Provider Advanced Imaging: CTA Head and Neck Completed. LVO:No Patient is not a candidate for JAKOB Metrics: Last Known Well: 12/15/2024 20:00:00 Dispatch Time: 12/16/2024 09:13:31 Arrival Time: 12/16/2024 08:58:00 Initial Response Time: 12/16/2024 09:17:00Symptoms: dizziness. Initial patient interaction: 12/16/2024 09:20:37 NIHSS Assessment Completed: 12/16/2024 09:31:09Patient is not a candidate for Thrombolytic. Thrombolytic Medical Decision: 12/16/2024 09:31:11Patient was not deemed candidate for Thrombolytic because of following reasons: LKW outside 4.[address] Head: I personally reviewed all the CT images that were available to me and it showed: no acute findings Primary Provider Notified of Diagnostic Impression and Management Plan on: 12/16/2024 10:28:07 History of Present Illness:Patient is a 84 year old Male. Patient was brought by EMS for symptoms of dizziness. 84yo man w/PMH of DM, CAD s/p CABG p/w dizziness on 12/16/24. He states he had spinning dizziness this morning so EMS was called for him. He also felt shaky and sweaty. He otherwise denies complaints or prior episodes. He states he last felt normal at 20:00 on 12/16/24. Past Medical History: Other PMH:? see hpi Medications: No Anticoagulant use? Antiplatelet use:?Yes?aspirin Reviewed EMR for current medications Allergies:? Reviewed Social History: Drug Use: No Family History: There is no family history of premature cerebrovascular disease pertinent to this consultation ROS : 14 Points Review of Systems was performed and was negative except mentioned in HPI. Past Surgical History: There Is No Surgical History Contributory To Today?s Visit Examination: BP(/),?Pulse(80), 1A: Level of Consciousness - Alert; keenly responsive?+ 0 1B: Ask Month and Age - Both Questions Right?+ 0 1C: Blink Eyes & Squeeze Hands - Performs Both Tasks?+ 0 2: Test Horizontal Extraocular Movements - Normal?+ 0 3: Test Visual Mccarty - No Visual Loss?+ 0 4: Test Facial Palsy (Use Grimace if Obtunded) - Normal symmetry?+ 0 5A: Test Left Arm Motor Drift - No Drift for 10 Seconds?+ 0 5B: Test Right Arm Motor Drift - No Drift for 10 Seconds?+ 0 6A: Test Left Leg Motor Drift - No Drift for 5 Seconds?+ 0 6B: Test Right Leg Motor Drift - No Drift for 5 Seconds?+ 0 7: Test Limb Ataxia (FNF/Heel-Kamara) - Ataxia in 1 Limb?+ 1 8: Test Sensation - Normal; No sensory loss?+ 0 9: Test Language/Aphasia - Normal; No aphasia?+ 0 10: Test Dysarthria - Normal?+ 0 11: Test Extinction/Inattention - No abnormality?+ 0 NIHSS Score:?1 Pre-Morbid Modified [place] Scale:0 Points = No symptoms at all Spoke with :?ED MD This consult was conducted in real time using interactive audio and video technology. Patient was informed of the technology being used for this visit and agreed to proceed. Patient located in hospital and provider located at home/office setting. Patient is being evaluated for possible acute neurologic impairment and high probability of imminent or life-threatening deterioration. I spent total of 35 minutes providing care to this patient, including time for face to face visit vi a telemedicine, review of medical records, imaging studies and discussion of findings with providers, the patient and/or family. Dr Luis Carlos Lawton [facility] For Inpatient follow-up with [facility] physician please call [facility] at . As we are not an outpatient service for any post hospital discharge needs please contact the hospital for assistance. If you have any questions for the [facility] physicians or need to reconsult for clinical or diagnostic changes please contact us via [facility] at . Signature :Virginie Lawton
[2024-12-16] MEDS: CLOPIDOGREL BISULFATE 75 MG TABLET 300 MG PO (11:01)
[2024-12-16] MEDS: ASPIRIN EC 81 MG TABEC PO (11:02)
--- NOTE | 2024-12-16 11:06 | PC.NURSE ---
Patient ONIELA from home for dizziness that occurred this morning when he got up. Patient states as of yesterday he started to feel off around 1999. Per patient family at bedside he had one episode of double/blurry vision for about 1 hour today. Stroke alert was called for this patient. Patient alert and oriented X4. Vitals stable. Passed swallow screen. Plan of care explained to family and patient at bedside.
--- NOTE | 2024-12-16 15:09 | PC.CC ---
Patient is a 84 year-old male who presents to the hospital for dizziness. Dionna SHINE made [id number] contact with patient. ASW introduced self, role, and reason for visit.?Patient appeared alert and oriented to self, location, and situation.?At bedside was patient's daughter, Estefany Donis whom patient provided consent to remain in the room during assessment. Patient was pleasant and engaged in initial assessment. Patient confirmed information on demographics and reports he lives at home with his , Samia Donis. Patient reports he has a POA in the event he is unable to make his own medical decisions it would be his daughter Estefany. At home patient ambulates with a walker and is able to complete his own ADLs independently. Patient has oxygen at home 2L as needed. Patient's primary provider is Earl Felipe and [facility]. Upon discharge patient plans to return home and if assistance is required his daughters live across the street and another within the same property. director of food and nutrition services to follow up with any discharge needs.
[2024-12-16] MEDS: HEPARIN SOD INJ 5000 UNIT/ML VIAL SC (15:18)
--- NOTE | 2024-12-16 16:19 | ESHP_ITS ---
<Statement entered by Giovanni Logan MD - 12/17/24 16:43> I have reviewed the note and agree with the resident's assessment & plan with exceptions as below. I have personally reviewed labs, imaging, home meds/prior records, examined the patient, formulated and discussed management plan with the IM team. Patient examined at bedside today. Patient has extensive prior history including quadruple vessel bypass, it seems that patient had trouble seeing things, however at this has been seen before for the patient when he gets a UTI. Patient already is already on aspirin and Lipitor, will increase Lipitor to 80 mg at this time. Teleneuro recommended admission and had NIHSS score of 1. Patient per family seems back at baseline. Will continue with stroke rule out at this time. Patient was given loading dose aspirin and Plavix. #Acute CVA rule out Plan: ? Neurology consulted, appreciate recs ? MR stroke protocol ? Speech therapy ? Physical therapy ? Echo ? Neurochecks every 4 hours ? Head of bed elevation 30 degrees ? DVT prophylaxis ? Bedrest ? Lipitor 80 mg at bedtime ? Continue with DAPT Giovanni Logan, PGY-2 Internal Medicine Documentation for date of: 12/16/24 HPI History of Present Illness History of present illness: Yajaira Donis is 84-year-old male with a past medical history of coronary artery disease (status post stents and CABG), COPD, hypertension, diabetes mellitus, and BPH who presented to the Emergency Department via EMS from home for evaluation of dizziness that began around 08:00 AM today. The symptoms started while the patient was making tea. He was seated for breakfast when he experienced sudden lightheadedness and a sensation that the room was spinning around his head. This was accompanied by brief diplopia lasting approximately one minute. He does recall a prior episode of similar symptoms in the past, even falls, though less intense. The patient reports going to bed at 8:00 PM last night and waking around 7:00 AM in his usual state of health. He denies any changes in speech or gait. He also denies recent illness, fever, chills, chest pain, cough, shortness of breath, abdominal pain, vomiting, or changes in bowel habits. ED Course: BP 151/85, HR 78, T 98.1, RR 17, SpO2 100% on RA. Stroke alert was activated in the ED. CT brain wo was negative for acute hemorrhage, mass effect, or midline shift. CTA of head and neck revealed 10-30% stenosis right carotid bifurcation origin right internal carotid artery; 30-50% stenosis left carotid bifurcation origin left internal carotid artery; Otherwise, No cerebral large vessel arterial occlusions. Patient was administered 1L of NS @100ml/h. in-house IM team was consulted for inpatient work-up associated with stroke r/o. PMHx: Dementia, Cardiac Arrhythmia, Atrial Fibrillation, Angina, Heart Murmur, Coronary Artery Disease and Hypertension, COPD, BPH, osteoarthritis, Diabetes Mellitus Type 2 PSHx: Coronary Stent, Cardiac Catheterization, Angiogram and Vasectomy FHx: Family Respiratory Disorders, Family Cancer and Family Surgery SHx: Former smoker; denies illicit drug use. Reason for Admission: Pt is being admitted for further work up of dizziness/lightheadedness, specifically to rule out stroke and assess cardiogenic etiology for his transient mental status change even risk of cardioembolic stroke. Review of Systems Review of Systems Narrative Review of Systems: 12 point ROS is reviewed and is otherwise negative unless stated direcetly in the HPI Exam Vital Signs Temp Pulse Resp BP Pulse Ox O2 Del Method 97.7 F 72 24 H 167/83 H 93 L Room Air 12/16/24 16:07 12/16/24 16:07 12/16/24 16:07 12/16/24 16:07 12/16/24 16:07 12/16/24 16:07 Narrative Exam General: Alert and oriented x3, No apparent distress. Skin: Intact, Warm, no rashes. HEENT: Normocephalic, Atraumatic. Normal neck range of motion, Supple. Trachea midline. Respiratory: Lungs are clear to auscultation, Breath sounds are equal bilaterally with equal chest expansion. Cardiovascular: RRR, normal S1, S2, No murmurs. Distal pulses 2+ Abdomen: Abdomen soft, non-distended, without erythema, or lesions. Normotensive bowel sounds x4. Percussion tympanic. Palpation nontender in all four quadrants. No organomagely. No guarding or rebound present. Musculoskeletal/Extremities: No erythema, swelling, tenderness of any joints. No edema of BLE. DP pulses +2/3 b/l. Full active ROM of all four extremities. Neurologic: NEURO: Oriented x3, cranial nerves II to XII grossly intact. Muscle strength 5/5 on UE and LE b/l, Moves extremities x4. Sensation intact to gross touch along C6-T1 and L2-S1 dermatomes. No focal neurologic deficits noted Psych: Thoughts linear and responses appropriate. Results: Labs 12/17/24 05:20 12/17/24 05:20 Labs: Short CBC 12/16/24 Range/Units 09:25 WBC 8.0 (3.8-10.6) Thou/mm3 Hgb 11.5 L (13.5-16.0) g/dL Hct 35.1 L (41.0-53.0) % Plt Count 223 (140-440) Thou/mm3 BMP 12/16/24 09:25 Sodium 142 Potassium 4.7 Chloride 110 H Carbon Dioxide 26.9 BUN 13 Creatinine 1.4 H Glucose 95 Calcium 9.0 Cardiac Enzymes 12/16/24 Range/Units 09:25 Troponin I < 0.020 (0.0-0.045) ng/mL Liver Function 12/16/24 Range/Units 09:25 Total Bilirubin 0.6 (0.3-1.2) mg/dL AST 16 (0-34) U/L ALT 10 (10-49) U/L Alkaline Phosphatase 95 (46-116) U/L Albumin 4.0 (3.4-4.8) gm/dL Urine 12/16/24 Range/Units 10:03 Urine Color Lt-Yellow (Lt Yel-Yel) Urine Clarity Clear (Clear/Hazy) Urine pH 7.0 (5.0-7.0) Ur Specific [place] 1.026 (1.001-1.035) Urine Protein Negative (Neg - Trace) Urine Glucose (UA) Negative (Negative) Quality Measures Quality Measures stroke Suspected type of Stroke: Non Acute Last known well (date): 12/15/24 Last known well (time): 20:00 Tenecteplase given: Reason(s) Tenecteplase not given: Outside the time window not given Rehab services: PT evaluation ordered and Speech Language Pathology eval ordered VTE Prophylaxis: pharmaceutical Antithrombotic by day 2:: ordered Statin ordered: >75 y/o moderate or high intensity dose Anticoagulation ordered for A-fib or flutter (current or hx): not indicated Advance care planning discussed with:: patient Medications Home Medications and Allergies Home Medications ?Medication ?Instructions ?Recorded ?Confirmed ?Type ferrous gluconate 324 mg (38 mg 324 mg PO QDAY 3 12/16/24 History iron) tablet metformin 1,000 mg tablet 1,000 mg PO BID 03/22/23 History Held on 03/28/23. Instructions: Resume on 03/31/23. hold metform may resume on 03/31/2023 omeprazole 20 mg capsule,delayed 20 mg PO QDAY 3 12/16/24 History release tiotropium bromide 2.5 2 puff inhalation QDAY 03/2212/16/24 History mcg/actuation mist for inhalation (Spiriva Respimat) aspirin 81 mg tablet,delayed 81 mg PO QDAY 03/23/23 History release (Ecotrin Low Strength) hydrocodone 5 mg-acetaminophen 325 1 tab PO BID PRN Pa in 03/23/23 12/16/24 History mg tablet ascorbic acid (vitamin C) 500 mg 900 mg PO QDAY 12/16/24 History tablet atorvastatin 40 mg tablet 40 mg PO QDAY 11/01/2312/16 History magnesium 200 mg tablet 400 mg PO QDAY 11/01/2311/18 History terazosin 2 mg capsule 2 mg PO HS 12/16/24 12/16/24 History Allergies Allergy/AdvReac Type Severity Reaction Status Date / Time lisinopril Allergy Verified 10/16/22 12:07 Penicillins Allergy Verified 10/16/22 12:07 prednisone Allergy Verified 10/16/22 12:07 alprazolam (From Xanax) AdvReac Agitated Verified 11/01/23 08:16 lorazepam (From Ativan) AdvReac Agitated Verified 11/01/23 08:16 meloxicam AdvReac Confusion Verified 11/01/23 08:16 Visit Medications Acetaminophen (Acetaminophen 325 Mg Tablet) 650 mg PO Q6H PRN PRN Reason: PAIN SCALE 1-3 (mild Stop: 01/15/25 14:34 Heparin Sodium (Porcine) (Heparin Sod Inj 5000 Unit/Ml Vial) 5,000 unit SC Q12HR MARCELINA Stop: 12/30/24 14:59 Last Admin: 12/16/24 15:18 Dose: 5,000 unit Sodium Chloride (Ns) 1,000 mls @ 100 mls/hr IV Q10H MARCELINA Stop: 01/15/25 09:14 Last Admin: 12/16/24 10:07 Dose: 100 mls/hr Labetalol HCl (Labetalol Inj 5 Mg/Ml Vial 20 Ml) 10 mg IVP Q2H PRN PRN Reason: BP>220/120 Stop: 01/15/25 15:29 Oxycodone/Acetaminophen (Oxycodone/Apap 5/325 Tablet) 1 tab PO Q6H PRN PRN Reason: PAIN SCALE 4-6 (Moderate Stop: 12/21/24 14:34 Discontinued Medications Aspirin (Aspirin Ec 81 Mg Tabec) 81 mg PO X1 ONE Stop: 12/16/24 10:39 Last Admin: 12/16/24 11:02 Dose: 81 mg Clopidogrel Bisulfate (Clopidogrel Bisulfate 75 Mg Tablet) 300 mg PO X1 ONE Stop: 12/16/24 10:39 Last Admin: 12/16/24 11:01 Dose: 300 mg Assessment & Plan Plan Yajaira Donis is 84-year-old male with a past medical history of coronary artery disease (status post stents and CABG), COPD, hypertension, diabetes mellitus, and BPH who presented to the Emergency Department via EMS from home for evaluation of dizziness that began around 08:00 AM on [id number]. Pt was admitted for inpatient work up for stroke rule out and assess cardiogenic etiology of his presenting symptoms. #Vertigo #Stroke r/o Ddx: CVA, TIA, BPPV, hypotension 2/[address] brain wo was negative for acute hemorrhage, mass effect, or midline shift. CTA of head and neck revealed 10-30% stenosis right carotid bifurcation origin right internal carotid artery; 30-50% stenosis left carotid bifurcation origin left internal carotid artery; Otherwise, No cerebral large vessel arterial occlusions. Neurology was consulted, appreciate recommendations Plan: ? Telemetry Floor ? Neuro Checks (Q4) ? Bedside Swallow Eval ? DVT Prophylaxis ? IV Fluids, Normal Saline ? Head of Bed 30 Degrees ? Euglycemia and Avoid Hyperthermia (PRN Acetaminophen) ? Bolus with Clopidogrel 300 mg bolus x1 and initiate dual antiplatelet therapy with Aspirin 81 mg daily and Clopidogrel 75 mg daily ? Antihypertensives PRN if Blood pressure is greater than 220/120 or there is a concern for End organ damage/contraindications for permissive HTN. ?Routine MRI Brain without contrast to assess for stroke ?TTE (if not recently done) ?Lipid Profile, A1C ?PT/OT, Speech/Swallow evaluation #Coronary artery disease #s/p stents and CABG, Plan: Aspirin 81mg on hold Atorvastatin 80mg HS ordered lipid panel CBC, CMP, Mg, PO4 morning draws #COPD Albuterol/Ipratropium danny [Duoneb] 3ml inhalation Q8h PRN #hypertension Allowing permissive hypertension If blood pressure is greater than 220/120 give labetalol PO or IV or Vasotec IV with a goal of 15% reduction in BP during the first 24 hours. -pending med rec. #T2DM HgbA1c 5.5 as of 11/25/23; New lab order placed. pt on home metformin 1000mg daily Plan: sliding scale insulin #BPH Patient on home Terazosin PO 2mg HS Health Maintenance: Disposition: Tele Diet: Cardiac PPx DVT: heparin 5000u Q12h PPx GI: Code status: Full This case was discussed with my attending physician, Dr. Auguste, and senior resident, Dr Logna. William Garcia, DO PGY I
--- NOTE | 2024-12-16 16:50 | ESCONSULT_ITS ---
HPI Data of Consult Requesting Physician: Carter Auguste MD Admitting Provider: Carter Auguste MD Attending Provider: Carter Auguste MD Primary Care Provider: Earl Felipe MD Consult Narrative History of present illness: Mr. Gates is an 84 y/o male with PMH CAD s/p stents s/p CABG, COPD, HTN, diabetes, BPH who presented to the ED 12/16 with dizziness (room spinning around him). LKAW 07:00 AM while making tea. Accompanied by double vision lasting ~1 minute. NIHSS 1 (Ataxia in 1 Limb). Admitted for stroke workup. Initial BP at home 87/74. ED Course: BP 151/85, HR 78, T 98.1, RR 17, SpO2 100% on RA. CT head w/o negative for acute hemorrhage. CTA of head and neck revealed 10-30% stenosis right carotid bifurcation origin right internal carotid artery; 30-50% stenosis left carotid bifurcation origin left internal carotid artery; No LVO. Given 1L of NS @100ml/h. Patient examined at bedside, reports no residual dizziness, headache, blurry or double vision. Accompanied by daughter. Patient has underlying dementia. cc:: cc: Carter Auguste MD Review of Systems Review of Systems Narrative Review of Systems: 14 point ROS negative other than HPI Exam Vital Signs Temp Pulse Resp BP Pulse Ox O2 Del Method 97.7 F 72 24 H 167/83 H 93 L Room Air 12/16/24 16:07 12/16/24 16:07 12/16/24 16:07 12/16/24 16:07 12/16/24 16:07 12/16/24 16:07 Narrative Exam General: No acute distress, well nourished Eye: PERRL, EOMI, normal conjunctiva, no scleral icterus HENT: Normocephalic, atraumatic, hearing intact to conversation at normal volume, moist oral mucosa Neck: Supple, non-tender, no JVD, no lymphadenopathy Lungs: Non-labored respirations, symmetric chest rise Heart: Peripheral pulses intact bilaterally Abdomen: Soft, non-tender, non-distended Musculoskeletal: Normal range of motion and strength Skin: Skin is warm, dry, no rashes or lesions. Psychiatric: Cooperative, appropriate mood and affect Neurologic: Mental status: AOx2 Orientation: Oriented to person, place, time, and situation Communication: Patient is cooperative and can follow simple instructions Language: Speech fluent, normal rate and volume, comprehension intact Cranial nerves: CN II: Visual soriano intact CN III: Pupils equal, round, and reactive to light CN III, IV, : No gaze deviation, no nystagmus Horizontal pursuit: intact Vertical pursuit: intact Ptosis: none CN V: Facial sensation to light touch intact bilaterally at the forehead, cheeks, and jaw line CN VII: Face symmetric, no facial droop appreciated CN VIII: Able to hear and respond to conversation at normal volume, intact to finger rub CN IX, X: Palate elevation symmetric, uvula midline CN XI: Head turn and shoulder shrug strong, symmetric bilaterally CN XII: Normal tongue protrusion without deviation, no fasciculations Motor: Normal bulk and tone No atrophy No abnormal movements or fasciculations Muscle strength: Shoulder abduction: R 5/5 L 5/5 Elbow flexion: R 5/5 L 5/5 Elbow extension: R 5/5 L 5/5 Hip flexion: R 5/5 L 5/5 Hip extension: R 5/5 L 5/5 Knee flexion: R 5/5 L 5/5 Knee extension: R 5/5 L 5/5 Sensory: RUE: Light touch intact LUE: Light touch intact RLE: Light touch intact LLE: Light touch intact Reflexes: Biceps (C5-6): R 2+ L 2+ Brachioradialis (C5-6): R 2+ L 2+ Triceps (C7-8): R 2+ L 2+ Patellae (L3-4): R 2+ L 2+ Achilles (S1-2):R 2+ L 2+ No clonus Plantar reflex downgoing bilaterally Cerebellum: RUE: No dysmetria (finger to nose), no dysdiadochokinesia (rapid alternating movements) LUE: No dysmetria (finger to nose), no dysdiadochokinesia (rapid alternating movements) RLE: No dysmetria (heel to garduno) LLE: No dysmetria (heel to garduno) Romberg: negative Gait: Normal stance, stride length, and arm swing Normal pivot turn without instability Results Labs 12/17/24 05:20 12/16/24 09:25 Labs: Short CBC 12/16/24 Range/Units 09:25 WBC 8.0 (3.8-10.6) Thou/mm3 Hgb 11.5 L (13.5-16.0) g/dL Hct 35.1 L (41.0-53.0) % Plt Count 223 (140-440) Thou/mm3 BMP 12/16/24 09:25 Sodium 142 Potassium 4.7 Chloride 110 H Carbon Dioxide 26.9 BUN 13 Creatinine 1.4 H Glucose 95 Calcium 9.0 Cardiac Enzymes 12/16/24 Range/Units 09:25 Troponin I < 0.020 (0.0-0.045) ng/mL Liver Function 12/16/24 Range/Units 09:25 Total Bilirubin 0.6 (0.3-1.2) mg/dL AST 16 (0-34) U/L ALT 10 (10-49) U/L Alkaline Phosphatase 95 (46-116) U/L Albumin 4.0 (3.4-4.8) gm/dL Urine 12/16/24 Range/Units 10:03 Urine Color Lt-Yellow (Lt Yel-Yel) Urine Clarity Clear (Clear/Hazy) Urine pH 7.0 (5.0-7.0) Ur Specific [place] 1.026 (1.001-1.035) Urine Protein Negative (Neg - Trace) Urine Glucose (UA) Negative (Negative) Quality Measures Quality Measures stroke Suspected type of Stroke: Non Acute Last known well (date): 12/15/24 Last known well (time): 20:00 Tenecteplase given: Reason(s) Tenecteplase not given: Outside the time window not given Rehab services: PT evaluation ordered and Speech Language Pathology eval ordered VTE Prophylaxis: pharmaceutical Antithrombotic by day 2:: ordered Statin ordered: >75 y/o moderate or high intensity dose Anticoagulation ordered for A-fib or flutter (current or hx): not indicated Advance care planning discussed with:: patient and child Medications Home Medications and Allergies Home Medications ?Medication ?Instructions ?Recorded ?Confirmed ?Type ferrous gluconate 324 mg (38 mg 324 mg PO QDAY 3 12/16/24 History iron) tablet metformin 1,000 mg tablet 1,000 mg PO BID 03/22/23 History Held on 03/28/23. Instructions: Resume on 03/31/23. hold metform may resume on 03/31/2023 omeprazole 20 mg capsule,delayed 20 mg PO QDAY 3 12/16/24 History release tiotropium bromide 2.5 2 puff inhalation QDAY 03/2212/16/24 History mcg/actuation mist for inhalation (Spiriva Respimat) aspirin 81 mg tablet,delayed 81 mg PO QDAY 03/23/23 History release (Ecotrin Low Strength) hydrocodone 5 mg-acetaminophen 325 1 tab PO BID PRN Pa in 03/23/23 12/16/24 History mg tablet ascorbic acid (vitamin C) 500 mg 900 mg PO QDAY 12/16/24 History tablet atorvastatin 40 mg tablet 40 mg PO QDAY 11/01/2312/16 History magnesium 200 mg tablet 400 mg PO QDAY 11/01/2311/18 History terazosin 2 mg capsule 2 mg PO HS 12/16/24 12/16/24 History Allergies Allergy/AdvReac Type Severity Reaction Status Date / Time lisinopril Allergy Verified 10/16/22 12:07 Penicillins Allergy Verified 10/16/22 12:07 prednisone Allergy Verified 10/16/22 12:07 alprazolam (From Xanax) AdvReac Agitated Verified 11/01/23 08:16 lorazepam (From Ativan) AdvReac Agitated Verified 11/01/23 08:16 meloxicam AdvReac Confusion Verified 11/01/23 08:16 Visit Medications Acetaminophen (Acetaminophen 325 Mg Tablet) 650 mg PO Q6H PRN PRN Reason: PAIN SCALE 1-3 (mild Stop: 01/15/25 14:34 Aspirin (Aspirin Ec 81 Mg Tabec) 81 mg PO QDAY MARCELINA Stop: 01/16/25 08:59 Atorvastatin Calcium (Atorvastatin Calcium 20 Mg Tablet) 80 mg PO HS MARCELINA Stop: 01/15/25 20:59 Clopidogrel Bisulfate (Clopidogrel Bisulfate 75 Mg Tablet) 75 mg PO QDAY MARCELINA Stop: 01/16/25 08:59 Dextrose (Dextrose 50%-Water Inj 50 Ml Syringe) 25 ml IV Q15MIN PRN PRN Reason: BG 50-70 responsive npo pt Stop: 01/15/25 16:44 Dextrose (Dextrose 50%-Water Inj 50 Ml Syringe) 50 ml IV Q15MIN PRN PRN Reason: BG <50 OR BG <70 & pt unresponsive Stop: 01/15/25 16:44 Glucagon (Glucagon Inj 1 Mg Vial) 1 mg IM Q15MIN PRN PRN Reason: BG <70, and no IV access Heparin Sodium (Porcine) (Heparin Sod Inj 5000 Unit/Ml Vial) 5,000 unit SC Q12HR [facility] Stop: 12/30/24 14:59 Last Admin: 12/16/24 15:18 Dose: 5,000 unit Sodium Chloride (Ns) 1,000 mls @ 100 mls/hr IV Q10H [facility] Stop: 01/15/25 09:14 Last Admin: 12/16/24 10:07 Dose: 100 mls/hr Insulin Human Lispro (Insulin Lispro (Admelog) 1 Unit/0.01 Ml Unit) 0 unit SC AC [facility]; Protocol Stop: 01/15/25 16:59 Labetalol HCl (Labetalol Inj 5 Mg/Ml Vial 20 Ml) 10 mg IVP Q2H PRN PRN Reason: BP>220/120 Stop: 01/15/25 15:29 Oxycodone/Acetaminophen (Oxycodone/Apap 5/325 Tablet) 1 tab PO Q6H PRN PRN Reason: PAIN SCALE 4-6 (Moderate Stop: 12/21/24 14:34 Pantoprazole Sodium (Pantoprazole Inj 40 Mg Vial) 40 mg IVP QDAY [facility] Stop: 01/16/25 08:59 Discontinued Medications Aspirin (Aspirin Ec 81 Mg Tabec) 81 mg PO X1 ONE Stop: 12/16/24 10:39 Last Admin: 12/16/24 11:02 Dose: 81 mg Clopidogrel Bisulfate (Clopidogrel Bisulfate 75 Mg Tablet) 300 mg PO X1 ONE Stop: 12/16/24 10:39 Last Admin: 12/16/24 11:01 Dose: 300 mg Assessment & Plan Plan # Syncope/TIA w/u # Hx dementia Hx afib: none Initial symptoms: dizziness Symptoms have resolved LKAW: 12/16 07:00 AM Initial NIHSS: 1 (ataxia in 1 limb) Inital BP: 87/74 Initial glucose: 95 UDS: negative, EtOH <10 Troponin: negative x1 CT head w/o: Negative for acute hemorrhage, midline shift, mass effect CTA head/neck w/: Negative for LVO. 10-30% stenosis right carotid bifurcation, 30-50% stenosis left carotid bifurcation Due to low BP, presentation most likely 2/2 hypotension Plan: - Pending EKG, MRI/MRA w/ and w/o - Pending A1C, lipids, TSH, TTE - Continue home ASA 81 mg daily - Continue home atorvastatin 40 mg daily - F/U outpatient neurology #Coronary artery disease s/p stents and CABG #COPD #Hypertension #T2DM #BPH -Management per primary Plan discussed with Dr. Lissette Espinosa, PGY1 Attending Provider Attestation/Addendum I personally have seen and examined the patient at the bedside and i agreed with resident's findings, assessment and plan of care. As Syncope/TIA are considered in the DD, go ahead with EEG and fu with MRI brain. Continue with ASA and statin. Continue to monitor for any recurrence.
--- NOTE | 2024-12-16 17:01 | XR_ITS ---
Examination: Carotid arterial duplex scan, ultrasound. Date and time of exam: December 16, 2024 1749 hours INDICATIONS: Episodes of dizziness this week Technique: Multiple sonographic images have been obtained of the carotid arteries and vertebral arteries, B-mode/grayscale imaging and Doppler spectral analysis and color flow Peak systolic and diastolic velocities have been recorded. Systolic diastolic ratios have been calculated. Findings: Right peak systolic velocities: Distal internal carotid artery peak systolic velocity is 0.9 M/sec Proximal internal carotid artery peak systolic velocity is 0.3 M/sec Carotid bifurcation peak systolic velocity is 0.6 M/sec External carotid artery peak systolic velocity is 0.9 M/sec Vertebral artery flow is antegrade. Left peak systolic velocities: Distal internal carotid artery peak systolic velocity is 0.4 M/sec Proximal internal carotid artery peak systolic velocity is 43 M/sec Carotid bifurcation peak systolic velocity is 0.4 M/sec External carotid artery peak systolic velocity is 1.3 M/sec Vertebral artery flow is antegrade Doppler waveform analysis demonstrates no spectral broadening Impression: Right internal carotid artery demonstrates 0-10% stenosis. Left internal carotid artery demonstrates 0-10 stenosis.
[2024-12-16] MEDS: INSULIN LISPRO (AdmeLOG) 1 UNIT/0.01 ML UNIT SC (17:09)
--- NOTE | 2024-12-16 17:58 | PC.NURSE ---
REPORT CALLED TO LAURENCE COLE ON TELEMETRY. RUBBER TUBING SPLICER FURTHER QUESTIONS
[2024-12-16] MEDS: ATORVASTATIN CALCIUM 20 MG TABLET 80 MG PO (20:24)
[2024-12-17] VITALS: BP 158/84; PULSE 66; RESP 17; TEMP 36.4; O2SAT 93
[2024-12-17 04:00] VITALS: BP 157/80; PULSE 64; RESP 14; TEMP 36; O2SAT 97
[2024-12-17] MEDS: SODIUM CHLORIDE 0.9% 1000 ML 1,000 ML 100 ML IV (05:35)
[2024-12-17 06:00] VITALS: BMI 26.5
[2024-12-17 06:22] LABS: Basophils # (Auto) 0.1 Thou/mm3 (0.0-0.2); Basophils % (Auto) 1 % (0-2.5); Eosinophils # (Auto) 0.5 Thou/mm3 (0.0-0.5); Eosinophils % (Auto) 8 % (0-10); Hematocrit 33.3 % (41.0-53.0); Hemoglobin 11.1 g/dL (13.5-16.0); Immature Granulocytes Auto 0.02 Thou/mm3 (0.00-0.00); Lymphocytes # (Auto) 2.0 Thou/mm3 (1.0-4.8); Lymphocytes % (Auto) 32 % (10-50); Mean Corpuscular HGB Conc 33.3 g/dl (31.0-37.0); Mean Corpuscular Hemoglobin 32.1 pg (25.0-35.0); Mean Corpuscular Volume 96 fL (80-100); Monocytes # (Auto) 0.6 Thou/mm3 (0.0-0.8); Monocytes % (Auto) 10 % (0-12); Neutrophils # (Auto) 3.0 Thou/mm3 (1.8-7.7); Neutrophils % (Auto) 49 % (37-80); Nucleated Red Blood Cell # 0.00 Thou/mm3 (0.00-0.00); Nucleated Red Blood Cell % 0 /100 WBC (0); Platelet Count 214 Thou/mm3 (140-440); RDW Standard Deviation 48.0 fL (35.1-43.9); Red Blood Count 3.46 Miln/mm3 (4.50-5.90); White Blood Count 6.1 Thou/mm3 (3.8-10.6)
[2024-12-17 07:12] LABS: Glucose Estimated Average 123 mg/dL (80-131); Hemoglobin A1C 5.9 % Hgb (4.8-6.0)
[2024-12-17 07:24] VITALS: PULSE 68; RESP 16; RESP 96
[2024-12-17 07:26] LABS: Alanine Aminotransferase 8 U/L (10-49); Albumin, Serum 3.8 gm/dL (3.4-4.8); Albumin/Globulin Ratio 1.7 (1.2-2.2); Alkaline Phosphatase 89 U/L (46-116); Anion Gap 11 (7-16); Aspartate Amino Transferase 14 U/L (0-34); BUN/Creatinine Ratio 11 Ratio (12-20); Bilirubin,Total 0.6 mg/dL (0.3-1.2); Blood Urea Nitrogen 13 mg/dL (9-23); Calcium 8.7 mg/dL (8.3-10.6); Calcium (Corrected) 8.9 mg/dL (8.5-10.1); Carbon Dioxide 24.3 mMol/L (20.0-31.0); Cardiac Risk Estimate 2.1 RATIO (4.0-6.7); Chloride 109 mMol/L (98-107); Cholesterol 125 mg/dL (132-200); Creatinine (Component) 1.2 mg/dL (0.6-1.3); Estimated Creatinine Clearance 54.2 mL/min (>60); Globulin 2.3 gm/dL (2.3-3.5); Glucose 87 mg/dL (74-106); HDL Cholesterol 60 mg/dL (40-60); LDL Cholesterol,Calculated 52 mg/dL (0-130); Magnesium 1.4 mg/dL (1.6-2.6); Osmolality,Calculated 285 (275-295); Phosphorous 3.2 mg/dL (2.4-5.1); Potassium 4.4 mMol/L (3.4-5.1); Sodium 144 mMol/L (136-145); Thyroid Stimulating Hormone 2.36 uIU/mL (0.55-4.78); Total Protein 6.1 gm/dL (5.7-8.2); Triglycerides 64 mg/dL (30-150); eGFR > 60 See Note
[2024-12-17 08:00] VITALS: BP 162/95; PULSE 68; PULSE 79; RESP 14; TEMP 36.3; O2SAT 95
[2024-12-17] MEDS: HEPARIN SOD INJ 5000 UNIT/ML VIAL SC (08:05)
[2024-12-17] MEDS: ASPIRIN EC 81 MG TABEC PO (08:08)
[2024-12-17] MEDS: CLOPIDOGREL BISULFATE 75 MG TABLET PO (08:09)
[2024-12-17 10:16] LABS: Sed Rate (ESR) 12 mm/hr (0-20)
[2024-12-17 10:21] LABS: C-Reactive Protein < 0.5 mg/dL (0.0-0.9)
[2024-12-17] MEDS: MAGNESIUM OXIDE 400 MG TABLET PO (11:26)
[2024-12-17] MEDS: LEVOFLOXACIN 250 MG TABLET 500 MG PO (11:26)
[2024-12-17 11:28] VITALS: BMI 13.0
--- NOTE | 2024-12-17 11:57 | ESDS_ITS ---
<Statement entered by Michelle Godinez DO - 12/18/24 08:40> I, Michelle Godinez DO, attest that I was physically present for the gray portions of the service and evaluated the patient with the resident and I reviewed and discussed the case with the resident and agree with the resident's findings and plans of care as documented above <Statement entered by Giovanni Logan MD - 12/17/24 21:21> I have reviewed the note and agree with the resident's assessment & plan with exceptions as below. I have personally reviewed labs, imaging, home meds/prior records, examined the patient, formulated and discussed management plan with the IM team. Pt examined at bedside today. MR stroke protocol shows no LVO, ischemic stroke, midline shift or mass effect. Pt likely experienced TIA/Syncopal episode. Pt to continue with ASA and high intensity statin. Pt to follow up outpatient in regards to further studies. Pt given Levaquin for concern for mastoiditis seen on MRI. Pt was then discharged with the instructions listed below. Giovanni Logan, PGY-2 Internal Medicine Planned Discharge Date 12/17/24 DS: Providers Provider Date of admission: 12/16/24 14:36 Primary care physician: Earl Felipe MD Admitting Provider: Carter Auguste MD Attending Provider on Admission: Carter Auguste MD Consults: 12/16/24 09:11 Consult to Neurology / Tele-Neurology Routine Comment: Consulting Provider: [facility] 12/16/24 16:43 Consult to Neurology / Tele-Neurology Routine Comment: Consulting Provider: Bud Mclaughlin Referral Physical Therapy Routine Comment: Physician Instructions: Referral Speech Therapy Routine Comment: 12/17/24 09:15 Referral - VP SOFTWARE Anesthesiology Teacher Routine Comment: leena Sanchez Attending Provider on DC: Michelle Godinez DO Discharging Provider: Michelle Godinez DO DS: Diagnosis Problem List Completed Was Problem List Reviewed/Reconciled?: Yes Hospital Course Hospital Course Hospital course: Mr. Gates is an 84 y/o male with PMH CAD s/p stents s/p CABG, COPD, HTN, diabetes, BPH who presented to the ED 12/16 with dizziness (room spinning around him), admitted for stroke workup. f/t/h significant bilateral mastoiditis on MR workup. ED course: BP 151/85, HR 78, T 98.1, RR 17, SpO2 100% on RA. Stroke alert was activated in the ED. CT brain wo was negative for acute hemorrhage, mass effect, or midline shift. CTA of head and neck revealed 10-30% stenosis right carotid bifurcation origin right internal carotid artery; 30-50% stenosis left carotid bifurcation origin left internal carotid artery; Otherwise, No cerebral large vessel arterial occlusions. Significant bilateral mastoiditis on MR workup. Patient was administered 1L of NS @100ml/h. Tele-neuro consulted. in-house IM team was consulted for inpatient work-up associated with stroke r/o. Hospital course: In house nuero consulted and found patient to be in his baseline state endorsing no residual dizziness, headache, blurry or double vision. Carotid doppler showed Right internal carotid artery demonstrates 0-10% stenosis. Left internal carotid artery demonstrates 0-10 stenosis. Started patient on 500mg Levofloxacin for mastoiditis, he does not report any ringing in ears or hearing loss. ESR and CRP within normal limits. Mr. Gates is an 84 y/o male with PMH CAD s/p stents s/p CABG, COPD, HTN, diabetes, BPH who presented to the ED 12/16 with dizziness (room spinning around him), admitted for stroke workup f/t/h significant bilateral mastoiditis on MR. Patient treated and discharged with levofloxacin 500mg. Patient is stable for discharge home. Discharge Instructions: Follow up with your primary care provider within one week from discharge Use meds as prescribed Use levofloxacin 500mg once a day for 7 days In case of return of your symptoms please return to the ED as soon as possible Problem List: #Acute CVA ruled out #Mastoiditis #Coronary artery disease s/p PCI and CABG 4x, #Hypertension #Non insulin dependent type II DM #BPH #Vertigo Patient seen and reviewed with attending Dr. Godinez and supervising resident Dr. Logan. Amari Oropeza MD PGY-1 Time Spent with Patient Time attestation: Total time spent providing and/or coordinating discharge services: Time spent: Greater than 30 minutes Exam Vital Signs Temp Pulse Resp BP Pulse Ox O2 Del Method 97.3 F 68 14 162/95 H 95 Room Air 12/17/24 08:00 12/17/24 08:00 12/17/24 08:00 12/17/24 08:00 12/17/24 08:00 12/17/24 08:00 Narrative Exam General: Alert and oriented x3, No apparent distress. Skin: Intact, Warm, no rashes. HEENT: Normocephalic, Atraumatic. Normal neck range of motion, Supple. Trachea midline. Respiratory: Lungs are clear to auscultation, Breath sounds are equal bilaterally with equal chest expansion. Cardiovascular: RRR, normal S1, S2, No murmurs. Distal pulses 2+ Abdomen: Abdomen soft, non-distended, without erythema, or lesions. Normotensive bowel sounds x4. Percussion tympanic. Palpation nontender in all four quadrants. No organomagely. No guarding or rebound present. Musculoskeletal/Extremities: No erythema, swelling, tenderness of any joints. No edema of BLE. DP pulses +2/3 b/l. Full active ROM of all four extremities. Neurologic: NEURO: Oriented x3, cranial nerves II to XII grossly intact. Muscle strength 5/5 on UE and LE b/l, Moves extremities x4. Sensation intact to gross touch along C6-T1 and L2-S1 dermatomes. No focal neurologic deficits noted Psych: Thoughts linear and responses appropriate. Discharge Plan Plan Patient Disposition: HOME (Self Care) Patient condition on transfer: Stable Health Concerns: Follow up with your primary care provider within one week from discharge Use meds as prescribed Use levofloxacine 500mg once a day for 7 days In case of return of your symptoms please return to the ED as soon as possible Prescriptions/Referrals Prescriptions/Med Rec: New levofloxacin 500 mg tablet 500 mg PO Q24H Qty: 7 0RF Continued omeprazole 20 mg capsule,delayed release(DR/EC) 20 mg PO QDAY Patient Comments: TAKE 1 CAPSULE BY MOUTH EVERY DAY 30 MINUTES BEFORE MORNING MEAL FOR 90 DAYS ferrous gluconate 324 mg (38 mg iron) tablet 324 mg PO QDAY Patient Comments: TAKE 1 TABLET BY MOUTH EVERY DAY WITH WATER OR JUICE BETWEEN MEALS Spiriva Respimat 2.5 mcg/actuation mist 2 puff INHALATION QDAY hydrocodone-acetaminophen 5-325 mg tablet 1 tab PO BID PRN (Reason: Pain) aspirin [Ecotrin Low Strength] 81 mg Tablet,Delayed Release (Dr/Ec) 81 mg PO QDAY atorvastatin 40 mg Tablet 40 mg PO QDAY ascorbic acid (vitamin C) 500 mg Tablet 900 mg PO QDAY magnesium 200 mg Tablet 400 mg PO QDAY terazosin 2 mg capsule 2 mg PO HS No Action metformin 1,000 mg tablet 1,000 mg PO BID Patient Comments: TAKE 1 TABLET BY MOUTH TWICE A DAY FOR 90 DAYS Referrals: Earl Felipe MD [Primary Care Provider] - Patient/Caregiver Discharge Instructions Education Materials: Symptoms of Stroke, Causes of Syncope, Diagnosing Syncope, Discharge Instructions for Stroke, Risk Factors for Stroke Print Language: Mohawk Stand Alone Forms: Magdalene Award Info., Patient Portal Info Letter Discharge Order Discharge Orders: Discharge (Routine); Ordered 12/17/24 Ordered By: Keyshawn Shaikh Quality Discharge Quality Measures VTE prophylaxis
[2024-12-17 12:00] VITALS: BP 148/81; PULSE 78; PULSE 95; RESP 20; TEMP 36.2; O2SAT 96
--- NOTE | 2024-12-17 12:32 | ESPR_ITS ---
Tele Neuro Progress Note Progress Note Date 12/17/24 Most Recent Vital Signs Last Vital Signs Temp 97.2 F 12/17/24 12:00 Pulse 78 12/17/24 12:00 Resp 20 12/17/24 12:00 BP 148/81 H 12/17/24 12:00 Pulse Ox 96 12/17/24 12:00 O2 Del Method Room Air 12/17/24 12:00 Laboratory-Coagulation Panel PT 10.8 Seconds (9.0-12.2) 12/16/24 09:25 INR 1.0 (0.9-1.3) 12/16/24 09:25 APTT 25.6 Seconds (22.0-36.0) 12/16/24 09:25 Progress Note Narrative [facility] TeleNeurology Consult Services Routine Consult Follow-Up Patient Name:???Yajaira Donis Date of :???1940 Identification Number:??? Date of Service:???12/17/2024 11:43:55 Diagnosis?R42 - Dizziness/ Vertigo/ Giddiness Impression 84yo man w/PMH of DM, CAD s/p CABG p/w dizziness on 12/16/24. He states he had spinning dizziness this morning so EMS was called for him. He also felt shaky and sweaty. He also denies any other focal deficits. CT of the head and neck does not show any significant stenosis and brain MRI does not show any evidence of stroke. Overall presentation is concerning for near syncope. I recommend close follow-up with cardiology and can also follow-up with neurology and to ensure symptoms are not related to autonomic dysfunction. Recommendations Close follow-up with cardiology to rule out cardiogenic cause of near syncope Continue to follow with neurology as scheduled and consider evaluation for autonomic dysfunction outpatient Neurology will sign off, please call with questions Our recommendations are outlined below Nursing Recommendations :Maintain EuglycemiaWhen possible avoid benzodiazepines, opioid pain medications, and anticholinergic medications DVT Prophylaxis :Choice of Primary Team Disposition :Neurology will sign off. Reconsult if Needed.Outpatient Neurology follow up in 3-6 weeks Subjective Patient was brought by EMS for symptoms of dizziness. 84yo man w/PMH of DM, CAD s/p CABG p/w dizziness on 12/16/24. He states he had spinning dizziness this morning so EMS was called for him. He also felt shaky and sweaty. He otherwise denies complaints or prior episodes. He states he last felt normal at 20:00 on 12/16/24. Hospital Course 12/17- EEG is pending, never before. Orthostatics pending. discharging, following neuro outpatient Imaging mri negative ? Examination BP(148/81),?Pulse(78),?Temp(20),?Resp(97.2), 1A: Level of Consciousness - Alert; keenly responsive?+ 0 1B: Ask Month and Age - Both Questions Right?+ 0 1C: Blink Eyes & Squeeze Hands - Performs Both Tasks?+ 0 2: Test Horizontal Extraocular Movements - Normal?+ 0 3: Test Visual Mccarty - No Visual Loss?+ 0 4: Test Facial Palsy (Use Grimace if Obtunded) - Normal symmetry?+ 0 5A: Test Left Arm Motor Drift - No Drift for 10 Seconds?+ 0 5B: Test Right Arm Motor Drift - No Drift for 10 Seconds?+ 0 6A: Test Left Leg Motor Drift - No Drift for 5 Seconds?+ 0 6B: Test Right Leg Motor Drift - No Drift for 5 Seconds?+ 0 7: Test Limb Ataxia (FNF/Heel-Kamara) - Ataxia in 1 Limb?+ 1 8: Test Sensation - Normal; No sensory loss?+ 0 9: Test Language/Aphasia - Normal; No aphasia?+ 0 10: Test Dysarthria - Normal?+ 0 11: Test Extinction/Inattention - No abnormality?+ 0 NIHSS Score:?1 ? This consult was conducted in real time using interactive audio and video technology. Patient was informed of the technology being used for this visit and agreed to proceed. Patient located in hospital and provider located at home/office setting. Telehealth Neurology consultation was provided. I spent 30 minutes providing telehealth care. This includes time spent for face to face visit via telemedicine, review of medical records, imaging studies and discussion of findings with providers, the patient and/or family. Dr Fan Spain [facility] For Inpatient follow-up with [facility] physician please call [facility] at . As we are not an outpatient service for any post hospital discharge needs please contact the hospital for assistance. If you have any questions for the [facility] physicians or need to reconsult for clinical or diagnostic changes please contact us via [facility] at Signature :?Fan Spain ?
--- NOTE | 2024-12-17 14:42 | PC.SS ---
Rounding note: patient has d/c home already.
== END 2024-12-17 13:43 | disposition home or self-care (01) ==
LOC: SERX 10:42 → S2NX 12-17 05:31 → SERHOLD 12-22 08:31 → S2NX 12-22 08:31
PROVIDERS: Admitting Provider Internal Medicine; Emergency Provider Family Medicine; PCP Family Medicine; Visit Provider Internal Medicine
DX: R42 Dizziness and giddiness (principal); H53.2 Diplopia; I25.10 Atherosclerotic heart disease of native coronary artery without angina pectoris; N40.0 Benign prostatic hyperplasia without lower urinary tract symptoms; J44.9 Chronic obstructive pulmonary disease, unspecified; I10 Essential (primary) hypertension; E11.9 Type 2 diabetes mellitus without complications; F03.90 Unspecified dementia, unspecified severity, without behavioral disturbance, psychotic disturbance, mood disturbance, and anxiety; I48.91 Unspecified atrial fibrillation; Z95.5 Presence of coronary angioplasty implant and graft; Z95.1 Presence of aortocoronary bypass graft; Z87.891 Personal history of nicotine dependence
CPT/HCPCS: 36415; 70450; 70496; 70498; 70544; 80053; 80061; 80307; 80320; 81001; 83036; 83735; 83880; 84100; 84443; 84484; 85025; 85610; 85652; 85730; 86140; 87040; 87086; 93005; 93880; 97162; A4649; G0378; J1644; J1815; J2470; J7030; Q9967; A9270; G0480

== ENCOUNTER 2025-01-31 12:22 | Emergency (ER) | payer OTHER, SELFPAY ==
[2025-01-31 12:23] VITALS: BMI 27.6
[2025-01-31 12:33] VITALS: BP 73/48; PULSE 162; RESP 16; O2SAT 94
--- NOTE | 2025-01-31 12:42 | EKG_ITS ---
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
--- NOTE | 2025-01-31 12:42 | XR_ITS ---
Examination: AP chest single view TECHNIQUE: AP semiupright portable chest single view Date and time: January 31, 2025 1303 hours, comparison September 20, 2024 INDICATIONS: Chest pain this morning. FINDINGS: Normal heart size CABG Accentuation basilar bronchovascular markings. No lobar pneumonia or pulmonary edema Prominent osteopenia IMPRESSION: Basilar bronchitis pattern
[2025-01-31 12:45] VITALS: BP 104/65; PULSE 148; PULSE 151; RESP 16; TEMP 36.6; O2SAT 94
--- NOTE | 2025-01-31 12:46 | PD.EDCHEST ---
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 Described as aching in sensation that is located most to the left chest that is accompanied by left arm pain, headache, and dizziness. No other associated symptoms reported. In triage patients blood pressure was 70/40s and taken to ED room 2. Repeat blood pressure 104/65, HR 157, saturating 94% on room air. Sepsis alert was activated. Related Data Home Medications ?Medication ?Instructions ?Recorded ?Confirmed ferrous gluconate 324 mg (38 mg 324 mg PO QDAY 03/22/23 12/16/24 iron) tablet metformin 1,000 mg tablet 1,000 mg PO BID 03/22/23 12/16/24 Held on 03/28/23. Instructions: Resume on 03/31/23. hold metform may resume on 03/31/2023 omeprazole 20 mg capsule,delayed 20 mg PO QDAY 03/22/23 12/16/24 release tiotropium bromide 2.5 2 puff inhalation QDAY 03/22/23 12/16/24 mcg/actuation mist for inhalation (Spiriva Respimat) aspirin 81 mg tablet,delayed 81 mg PO QDAY 03/23/23 12/16/24 release (Ecotrin Low Strength) hydrocodone 5 mg-acetaminophen 325 1 tab PO BID PRN Pain 03/23/23 12/16/24 mg tablet ascorbic acid (vitamin C) 500 mg 900 mg PO QDAY 11/01/23 12/16/24 tablet atorvastatin 40 mg tablet 40 mg PO QDAY 11/01/23 12/16/24 magnesium 200 mg tablet 400 mg PO QDAY 11/01/23 12/16/24 terazosin 2 mg capsule 2 mg PO HS 12/16/24 12/16/24 Previous Rx's ?Medication ?Instructions ?Recorded levofloxacin 500 mg tablet 500 mg PO Q24H #7 tabs 12/17/24 Allergies Allergy/AdvReac Type Severity Reaction Status Date / Time lisinopril Allergy Unknown Verified 01/31/25 12:27 Penicillins Allergy Unknown Verified 01/31/25 12:27 prednisone Allergy Unknown Verified 01/31/25 12:27 alprazolam (From Xanax) AdvReac Severe Agitated Verified 01/31/25 12:27 lorazepam (From Ativan) AdvReac Severe Agitated Verified 01/31/25 12:27 meloxicam AdvReac Severe Confusion Verified 01/31/25 12:27 Review of Systems Review of Systems Systems Reviewed: All systems reviewed, normal except as documented Past Medical History Past Medical History NEUROLOGIC: Positive Dementia CARDIAC: Positive Cardiac Disorders, Myocardial Infarction, Cardiac Arrhythmia, Atrial Fibrillation, Angina, Heart Murmur and Coronary Artery Disease (QUADRUPLE BYPASS 2022) RESPIRATORY: Positive Chronic Obstructive Pulmonary Disease (COPD) GENITOURINARY: Positive Genitourinary Disorders and Benign Prostatic Hyperplasia MUSCULOSKELETAL: Positive Musculoskeletal Disorders and Arthritis ENDOCRINE: Positive Diabetes Mellitus Type 2 OTHER HISTORY: Positive Hospitalization and Falls Family History FAMILY HISTORY: Positive Family Cancer and Family Surgery Surgical History SURGICAL: Positive Coronary Stent, Cardiac Catheterization, Angiogram and Vasectomy Social History SMOKING STATUS: Never smoker SECOND HAND EXPOSURE: No SUBSTANCE USE: does not use ED Exam Narrative Physical exam: GENERAL APPEARANCE: alert and oriented x 4, well-developed, well-nourished, no acute distress HEENT: Normocephalic, atraumatic; pupils equal, round, reactive to light; EOMI; mucous membranes pink, moist; oropharynx clear NECK: Supple LUNGS: CTABL; no wheezes, no rales, no rhonchi HEART: Tachycardic; normal S1, S2; no murmurs ABDOMEN: non distended; normal BS; soft, no tenderness, no guarding, no rebound; no masses, no organomegaly, no hernia BACK: no CVA tenderness EXTREMITIES: atraumatic; no edema NEUROLOGIC: awake; alert and oriented x4; cranial nerves II-XII grossly intact; no focal sensory or motor deficits PSYCHIATRIC: appropriate mood and affect SKIN: cool, dry, normal color; no rashes Course Quality Measures Current suspected stage: ruled out Possible source: other (ruled out ) Blood cultures ordered: completed in ED Antibiotic ordered: No sepsis Orders Category Date Time Status Food Manager NOW Care 01/31/25 12:42 Active EKG (ED ONLY) *Do not use* NOW Care 01/31/25 12:42 Completed EKG (ED ONLY) *Do not use* NOW Care 01/31/25 13:09 Completed EKG (ED Only) Stat Exams 01/31/25 12:42 Draft EKG (ED Only) Stat Exams 01/31/25 13:09 Draft XR chest 1V portable Stat Exams 01/31/25 12:42 Completed B-Type Natriuretic Peptide Stat Lab 01/31/25 12:43 Completed CBC Stat Lab 01/31/25 12:43 Completed Comprehensive Metabolic Panel Stat Lab 01/31/25 12:43 Completed Magnesium Stat Lab 01/31/25 12:43 Completed Partial Thromboplastin Time Stat Lab 01/31/25 12:43 Completed Prothrombin Time with INR Stat Lab 01/31/25 12:43 Completed Troponin I Stat Lab 01/31/25 12:43 Completed Sodium Chloride 0.9% 1000 ml [Ns] 1,000 ml Med 01/31/25 12:45 Discontinued IV 999 mls/hr Vital Signs Vital signs: Vital Signs Pulse Rate 162 H 01/31/25 12:33 Respiratory Rate 16 01/31/25 12:33 Blood Pressure 73/48 L 01/31/25 12:33 Pulse Oximetry (%) 94 L 01/31/25 12:33 Oxygen Delivery Method Room Air 01/31/25 12:33 Chest Pain MDM Narrative MDM Narrative:: Milagro Kramer am scribing for and in the presence of Dr. Trejo. Patient data External records reviewed:: [facility] previous records (I reviewed ED visit on 12/16/2024 through 12/17/2024 ) Clinical information provided by:: patient Social determinants that could affect healthcare access:: none Patient has the following chronic illnesses:: CAD s/p stents and CABG, hypertension, diabetes, COPD, BPH How is presenting disease/condition affected by chronic disease/condition?: exacerbated by Evaluation data The following diagnostics were reviewed and interpreted by me:: lab results, radiology exam(s) and EKG tracing(s) (EKG #1 @ 12:39h Atrial flutter with occasional PVCs, rate 155, no STEMI. EKG # 2 @ 13:28h Sinus rhythm with first degree AV block, rate 78, no acute ischemic changes, no STEMI. ) Lab and/or radiology exams considered but not ordered:: None Interpretation Summary: Ordering Physician: Mariaa Trejo MD Date of Service: 01/31/25 Procedure(s): XR chest 1V portable Accession Number(s): [id number] cc: Jelani Mahoney MD; Mariaa Trejo MD~ Examination: AP chest single view TECHNIQUE: AP semiupright portable chest single view Date and time: January 31, 2025 1303 hours, comparison September 20, 2024 INDICATIONS: Chest pain this morning. FINDINGS: Normal heart size CABG Accentuation basilar bronchovascular markings. No lobar pneumonia or pulmonary edema Prominent osteopenia IMPRESSION: Basilar bronchitis pattern Dictated By: Jelani Mahoney MD Signed By: <Electronically signed by Jelani Mahoney MD in OV> 01/31/25 1311 Medications / Prescriptions Medications or Prescriptions considered but not ordered:: None Medication administrations:: Medication Administration History Discontinued Medications Sodium Chloride (Ns) 1,000 mls @ 999 mls/hr IV .Q1H1M ONE Stop: 01/31/25 13:45 Last Infusion: 01/31/25 13:51 Dose: Infused Documented By: Admin: 01/31/25 12:50 Dose: 999 mls/hr Documented By: BY See above Consultations Consultation(s) initiated? (list below): No Diagnosis Chest Pain Differential Diagnosis: stable angina, atypical chest pain, st elevation myocardial infarction, costochondritis, chest pain and biliary colic Most likely diagnosis given after review of the tests above:: Tachycardia Afib/flutter Admission Indicated Admission indicated?: not indicated Admission Request Was there a request for admission?: No Disposition Plan Disposition Plan: Discharge Discharge Attestation Discharge Attestation: The patient and all family members were given an opportunity to ask questions and understood the discharge instructions. Discharge instructions specifically effects, indications for sooner follow up or return to the emergency department, and the expected course of current diagnosis. Patient condition: Stable Discharge Plan Plan Patient Disposition: HOME (Self Care) Prescriptions/Referrals Prescriptions/Med Rec: No Action metformin 1,000 mg tablet 1,000 mg PO BID Patient Comments: TAKE 1 TABLET BY MOUTH TWICE A DAY FOR 90 DAYS omeprazole 20 mg capsule,delayed release(DR/EC) 20 mg PO QDAY Patient Comments: TAKE 1 CAPSULE BY MOUTH EVERY DAY 30 MINUTES BEFORE MORNING MEAL FOR 90 DAYS ferrous gluconate 324 mg (38 mg iron) tablet 324 mg PO QDAY Patient Comments: TAKE 1 TABLET BY MOUTH EVERY DAY WITH WATER OR JUICE BETWEEN MEALS Spiriva Respimat 2.5 mcg/actuation mist 2 puff INHALATION QDAY hydrocodone-acetaminophen 5-325 mg tablet 1 tab PO BID PRN (Reason: Pain) aspirin [Ecotrin Low Strength] 81 mg Tablet,Delayed Release (Dr/Ec) 81 mg PO QDAY atorvastatin 40 mg Tablet 40 mg PO QDAY ascorbic acid (vitamin C) 500 mg Tablet 900 mg PO QDAY magnesium 200 mg Tablet 400 mg PO QDAY terazosin 2 mg capsule 2 mg PO HS levofloxacin 500 mg tablet 500 mg PO Q24H Qty: 7 0RF Referrals: Ita Mccoy MD [Physician, Cardiology] Problem List Clinical Impression: Tachycardia, Atrial fib/flutter, transient Patient/Caregiver Discharge Instructions Education Materials: ED Atrial Flutter Additional Instructions: Follow up with your senior product marketing manager, Dr. Mccoy. Call office for appointment. Print Language: Amharic Stand Alone Forms: Magdalene Award Info., Patient Portal Info Letter
[2025-01-31] MEDS: SODIUM CHLORIDE 0.9% 1000 ML 1,000 ML 999 ML IV (12:50)
[2025-01-31 13:00] VITALS: BP 128/68; PULSE 87; RESP 16; O2SAT 97
[2025-01-31 13:01] LABS: Basophils # (Auto) 0.1 Thou/mm3 (0.0-0.2); Basophils % (Auto) 1 % (0-2.5); Eosinophils # (Auto) 0.3 Thou/mm3 (0.0-0.5); Eosinophils % (Auto) 4 % (0-10); Hematocrit 37.0 % (41.0-53.0); Hemoglobin 12.2 g/dL (13.5-16.0); Immature Granulocytes Auto 0.02 Thou/mm3 (0.00-0.00); Lymphocytes # (Auto) 2.2 Thou/mm3 (1.0-4.8); Lymphocytes % (Auto) 24 % (10-50); Mean Corpuscular HGB Conc 33.0 g/dl (31.0-37.0); Mean Corpuscular Hemoglobin 32.3 pg (25.0-35.0); Mean Corpuscular Volume 98 fL (80-100); Monocytes # (Auto) 0.8 Thou/mm3 (0.0-0.8); Monocytes % (Auto) 8 % (0-12); Neutrophils # (Auto) 5.7 Thou/mm3 (1.8-7.7); Neutrophils % (Auto) 63 % (37-80); Nucleated Red Blood Cell # 0.00 Thou/mm3 (0.00-0.00); Nucleated Red Blood Cell % 0 /100 WBC (0); Platelet Count 223 Thou/mm3 (140-440); RDW Standard Deviation 47.8 fL (35.1-43.9); Red Blood Count 3.78 Miln/mm3 (4.50-5.90); White Blood Count 9.0 Thou/mm3 (3.8-10.6)
--- NOTE | 2025-01-31 13:09 | EKG_ITS ---
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
[2025-01-31 13:13] LABS: INR 1.0 (0.9-1.3); Partial Thromboplastin Time 23.9 Seconds (22.0-36.0); Prothrombin Time 10.9 Seconds (9.0-12.2)
[2025-01-31 13:40] LABS: Alanine Aminotransferase 11 U/L (10-49); Albumin, Serum 4.3 gm/dL (3.4-4.8); Albumin/Globulin Ratio 1.9 (1.2-2.2); Alkaline Phosphatase 102 U/L (46-116); Anion Gap 15 (7-16); Aspartate Amino Transferase 16 U/L (0-34); BUN/Creatinine Ratio 7 Ratio (12-20); Bilirubin,Total 0.6 mg/dL (0.3-1.2); Blood Urea Nitrogen 12 mg/dL (9-23); Calcium 9.3 mg/dL (8.3-10.6); Calcium (Corrected) 9.3 mg/dL (8.5-10.1); Carbon Dioxide 19.2 mMol/L (20.0-31.0); Chloride 110 mMol/L (98-107); Creatinine (Component) 1.7 mg/dL (0.6-1.3); Estimated Creatinine Clearance 38.3 mL/min (>60); Globulin 2.3 gm/dL (2.3-3.5); Glucose 126 mg/dL (74-106); Magnesium 1.9 mg/dL (1.6-2.6); Osmolality,Calculated 288 (275-295); Potassium 4.6 mMol/L (3.4-5.1); Sodium 144 mMol/L (136-145); Total Protein 6.6 gm/dL (5.7-8.2); Troponin I < 0.020 ng/mL (0.0-0.045); eGFR 40 See Note
[2025-01-31 13:47] LABS: B-Type Natriuretic Peptide 154 pg/mL (0-100)
[2025-01-31 14:02] VITALS: BP 138/71; PULSE 82; RESP 16; O2SAT 97
[2025-01-31 14:46] VITALS: BP 133/82; PULSE 76; RESP 18; O2SAT 98
== END 2025-01-31 14:49 | disposition home or self-care (01) ==
LOC: SERX 14:17
PROVIDERS: Emergency Provider Emergency Medicine
DX: I48.92 Unspecified atrial flutter (principal); I48.91 Unspecified atrial fibrillation; I44.0 Atrioventricular block, first degree; R07.9 Chest pain, unspecified; I25.10 Atherosclerotic heart disease of native coronary artery without angina pectoris; I10 Essential (primary) hypertension; Z95.5 Presence of coronary angioplasty implant and graft
CPT/HCPCS: 36415; 71045; 80053; 83735; 83880; 84484; 85025; 85610; 85730; 93005; 96360; 99284; J7030